=== PATIENT | male | born 1955 | race Caucasian/White ===

== ENCOUNTER 2021-03-05 07:43 | Outpatient (CLI) | payer MEDICARE, OTHER, SELFPAY ==
[2021-03-05 08:28] LABS: Basophils Percent Auto 0.8 % (0.2-1.2); Eosinophils Absolute Auto 0.3 K/mm3 (0-0.3); Eosinophils Percent Auto 8.1 % (0-4.4); Hematocrit 41.3 % (42.0-52.0); Hemoglobin 14.3 g/dL (14.0-18.0); Immature Granulocyte Absolute 0.03 K/mm3 (0.00-0.031); Immature Granulocyte Percent A 0.8 % (0-0.5); Lymphocytes Absolute Auto 0.41 K/mm3 (0.9-3.2); Lymphocytes Percent Auto 11.5 % (18.3-44.2); Mean Corpuscular HGB Conc 34.6 g/dl (32-36); Mean Corpuscular Hemoglobin 29.5 pg (26-34); Mean Corpuscular Volume 85.3 fl (80-100); Mean Platelet Volume 8.5 fl (7.4-10.4); Monocytes Absolute Auto 0.3 K/mm3 (0.1-0.6); Monocytes Percent Auto 9.5 % (2.6-8.5); Neutrophils Absolute Auto 2.5 K/mm3 (1.3-6.7); Neutrophils Percent Auto 69.3 % (45.5-73.1); Platelet Count Result 227 k/mm3 (150-375); Red Blood Count 4.84 M/mm3 (4.6-6.20); Red Cell Distribution Width 13.3 % (11.5-14.5); White Blood Count 3.6 K/mm3 (4.5-10.0)
[2021-03-05 08:43] LABS: Alanine Aminotransferase 25 U/L (4-50); Albumin Level 4.2 g/dL (3.5-5.1); Alkaline Phosphatase 60 U/L (38-126); Anion Gap 3 mmol/L (8-16); Aspartate Amino Transferase 28 U/L (17-59); Bilirubin,Total 0.4 mg/dL (0.2-1.3); Blood Urea Nitrogen 21 mg/dL (9-20); Calcium 9.3 mg/dL (8.4-10.2); Carbon Dioxide 34 mmol/L (22-30); Chloride 102 mmol/L (98-107); Cholesterol 179 mg/dL (0-200); Estimated Glomerular Filt Rate > 60; Glucose 107 mg/dL (75-110); HDL Direct 51 mg/dL; Potassium 3.9 mmol/L (3.4-5.0); Sodium 139 mmol/L (137-145); Triglycerides 205 mg/dL (<150)
[2021-03-05 08:54] LABS: LDL Cholesterol Direct 95 mg/dL
[2021-03-05 13:42] LABS: Free T4 Free Thyroxine Reflex 0.71 ng/dL (0.78-2.19)
== END 2021-03-05 07:44 | disposition home or self-care (01) ==
PROVIDERS: PCP Family Medicine; Visit Provider Family Medicine
DX: Z51.81 Encounter for therapeutic drug level monitoring (principal); Z13.220 Encounter for screening for lipoid disorders; I10 Essential (primary) hypertension; Z79.899 Other long term (current) drug therapy; Z00.00 Encounter for general adult medical examination without abnormal findings
CPT/HCPCS: 36415; 80053; 80061; 84439; 84443; 85025

== ENCOUNTER 2021-06-14 00:46 | Day surgery (SDC) | payer MEDICARE, OTHER, SELFPAY ==
[2021-06-04 14:56] VITALS: BMI 37.8
[2021-06-14 08:49] VITALS: BP 133/89; PULSE 87; RESP 22; TEMP 35.8; O2SAT 93; BMI 36.8
--- NOTE | 2021-06-14 08:54 | WPDGICN ---
Assessment and Plan Assessment and plan (1) History of colon polyps: Code(s): Z86.010 - Personal history of colonic polyps Status: Acute Assessment and Plan: Patient has a history of colon polyps in 2014. Patient presents today for surveillance examination. Continued high-fiber diet is advised. Further recommendations may be given after endoscopy. (2) Prostate cancer: Code(s): C61 - Malignant neoplasm of prostate Status: Acute Assessment and Plan: Patient is status post radiation therapy for history of recurrent prostate cancer. This may cause a proctitis which will be assessed at time of endoscopy. GI Consult Note Consult date/time: 06/14/21 08:54 HPI: Marques Springer is a 65 year old male Presents for screening colonoscopy. Patient reports that his weight appetite bowel movements are normal. His last colonoscopy was 2014. At that time he had colon polyps. Patient reports that he was found to have prostate cancer underwent prostatectomy in July of 2019. Patient had a recurrence identified last year. He in December 2020 and required a series of radiation therapy. Patient briefly had diarrhea that has now improved. He denies any blood in his stools. His family history is noncontributory. He presents today for colonoscopy. Review of Systems Review of Systems: All systems reviewed & are unremarkable except as noted in HPI and below PMFSH Past Medical History Medical History BMI 36.0-36.9,adult BPH NOS w/o ur obs/LUTS Cancer Chronic neck and back pain Degenerative arthritis of knee, bilateral Environmental allergies Erectile dysfunction Essential (primary) hypertension GERD without esophagitis History of colon polyps Hypertension Insomnia LOPEZ (obstructive sleep apnea) Osteoarthritis Prostate cancer Surgical History Surgical History History of arthroscopy of both knees 11/2012 - bilateral meniscus repair History of carpal tunnel release 2008 - Left History of prostatectomy 07/2019 Hx of decompressive lumbar laminectomy (~03/2013) S/P cervical spinal fusion (~04/2016) Family History Family History Mother Diabetes mellitus Hypertension Father Heart disease Father Family history of tuberculosis, Onset Age: 74 Cerebrovascular accident, Onset Age: 74 Patient's father is Mother Hypertension Cerebrovascular accident, Onset Age: 61 Family history of diabetes mellitus in first degree relative Diabetes mellitus, Onset Age: 61 Sibling Patient's sister is in good health Mother Diabetes mellitus Hypertension Father Family history of alcoholism Social History Social History Smoking status: Never smoker Second hand tobacco smoke exposure: No Alcohol intake: current Alcohol use details: occasionally Substance use: never Substance use type: does not use Living arrangements: with family Gender identity (if verbalized by the patient): Male Spiritual care concerns: No Meds Home Medications and Allergies Home Medications Medication Instructions Recorded Confirmed Type cetirizine 10 mg tablet 10 mg PO DAILY 11/10/19 06/04/21 History imoymlds-mef-bwnes acid 300 1 tablet PO DAILY 11/10/19 06/04/21 History mcg-lycopene 600 mcg-lutein 300 mcg tablet naproxen sodium 220 mg capsule 440 mg PO DAILY 11/10/19 06/04/21 History psyllium husk 0.52 gram capsule 0.52 gm PO DAILY 11/10/19 06/04/21 History acetaminophen 650 mg 650 mg PO Q12H 11/20/20 06/04/21 History tablet,extended release losartan 50 mg-hydrochlorothiazide 1 tablet PO DAILY #90 tablet 05/28/21 06/14/21 Rx 12.5 mg tablet omeprazole 20 mg capsule,delayed 20 mg PO DAILY #90 cap 05/28/21 06/04/21 Rx releas
--- NOTE | 2021-06-14 08:56 | WPDANESEPPF ---
Anes - Initial Pre Proc Eval Procedure: Operation Date: 06/14/21 10:00 Proposed Procedures p Screening Colonoscopy - Shen Heller MD Date/Time: 06/14/21 08:56 Surgeon: Shen Heller MD Pre Op Diagnosis: hx colon polyps Patient Data Age: 65 Gender: M Height: 1.63 m Weight: 97.5 kg Last Vital Signs Temp 35.8 C L 06/14/21 08:49 Pulse 87 06/14/21 08:49 Resp 22 H 06/14/21 08:49 BP 133/89 06/14/21 08:49 Pulse Ox 93 06/14/21 08:49 Allergies Allergy/AdvReac Type Severity Reaction Status Date / Time No Known Allergies Allergy Verified 06/14/21 08:46 Home Medications Medication Instructions Recorded Confirmed Type cetirizine 10 mg tablet 10 mg PO DAILY 11/10/19 06/04/21 History jdtwhdre-utq-mawch acid 300 1 tablet PO DAILY 11/10/19 06/04/21 History mcg-lycopene 600 mcg-lutein 300 mcg tablet naproxen sodium 220 mg capsule 440 mg PO DAILY 11/10/19 06/04/21 History psyllium husk 0.52 gram capsule 0.52 gm PO DAILY 11/10/19 06/04/21 History acetaminophen 650 mg 650 mg PO Q12H 11/20/20 06/04/21 History tablet,extended release losartan 50 mg-hydrochlorothiazide 1 tablet PO DAILY #90 tablet 05/28/21 06/14/21 Rx 12.5 mg tablet omeprazole 20 mg capsule,delayed 20 mg PO DAILY #90 cap 05/28/21 06/04/21 Rx release cyclobenzaprine 5 mg PO DAILY 06/04/21 06/04/21 History docusate sodium [Colace] 50 mg PO DAILY 06/04/21 06/04/21 History tadalafil [Cialis] 20 mg PO DAILY PRN 06/04/21 06/04/21 History zolpidem 10 mg tablet 10 mg PO DAILY PRN #30 tablet 06/05/21 Rx Patient hx anesthesia problems: other (slow to awaken) Family hx anesthesia problems: other (slow to awaken) PMFSH Past Medical History Medical History BMI 36.0-36.9,adult BPH NOS w/o ur obs/LUTS Cancer Chronic neck and back pain Degenerative arthritis of knee, bilateral Environmental allergies Erectile dysfunction Essential (primary) hypertension GERD without esophagitis History of colon polyps Hypertension Insomnia LOPEZ (obstructive sleep apnea) Osteoarthritis Prostate cancer Surgical History Surgical History History of arthroscopy of both knees 11/2012 - bilateral meniscus repair History of carpal tunnel release 2008 - Left History of prostatectomy 07/2019 Hx of decompressive lumbar laminectomy (~03/2013) S/P cervical spinal fusion (~04/2016) Family History Family History Mother Diabetes mellitus Hypertension Father Heart disease Father Family history of tuberculosis, Onset Age: 74 Cerebrovascular accident, Onset Age: 74 Patient's father is Mother Hypertension Cerebrovascular accident, Onset Age: 61 Family history of diabetes mellitus in first degree relative Diabetes mellitus, Onset Age: 61 Sibling Patient's sister is in good health Mother Diabetes mellitus Hypertension Father Family history of alcoholism Social History Social History Smoking status: Never smoker Second hand tobacco smoke exposure: No Alcohol intake: current Alcohol use details: occasionally Substance use: never Substance use type: does not use Living arrangements: with family Gender identity (if verbalized by the patient): Male Spiritual care concerns: No Anes - Eval Final PreProcedure Day of Procedure 06/14/21 08:56 Patient weight: obese Heart: regular rate and rhythm Lungs: clear to auscultation Airway: Mallampati scale class III Neurological: alert and oriented Last oral intake: >/= 8 hours ASA classification: III Emergent: no Anesthetic plan: proceed Anesthesia type and monitoring: general GIVS and standard monitoring Informed Consent: The patient's anesthetic plan and its attendant risks and benefits were discuss
[2021-06-14] MEDS: LACTATED RINGERS 1,000 ML 150 ML IV CONT (09:03)
[2021-06-14 10:18] VITALS: BP 86/48; RESP 20; O2SAT 96
[2021-06-14 10:28] VITALS: BP 135/94; RESP 18; O2SAT 97
[2021-06-14 10:38] VITALS: BP 143/92; RESP 13; O2SAT 100
== END 2021-06-14 10:50 | disposition home or self-care (01) ==
PROVIDERS: PCP Family Medicine; Visit Provider Internal Medicine Gastroenterology
PROC: 0DJD8ZZ Inspection of Lower Intestinal Tract, Via Natural or Artificial Opening Endoscopic (ICD-10-PCS; CPT 45378; principal; 2021-06-14 10:00)
DX: Z12.11 Encounter for screening for malignant neoplasm of colon (principal); Z86.010 Personal history of colon polyps; C61 Malignant neoplasm of prostate; I10 Essential (primary) hypertension; K64.8 Other hemorrhoids; K21.9 Gastro-esophageal reflux disease without esophagitis; M17.0 Bilateral primary osteoarthritis of knee; M54.2 Cervicalgia; M54.9 Dorsalgia, unspecified; G89.29 Other chronic pain; G47.00 Insomnia, unspecified; G47.33 Obstructive sleep apnea (adult) (pediatric); Z98.1 Arthrodesis status
CPT/HCPCS: G0105; J2704; J7120

== ENCOUNTER 2021-09-11 09:27 | Outpatient (CLI) | payer MEDICARE, OTHER, SELFPAY ==
[2021-09-11 10:19] LABS: Basophils Percent Auto 0.8 % (0.2-1.2); Eosinophils Absolute Auto 0.2 K/mm3 (0-0.3); Eosinophils Percent Auto 4.3 % (0-4.4); Hematocrit 41.3 % (42.0-52.0); Hemoglobin 13.6 g/dL (14.0-18.0); Immature Granulocyte Absolute 0.01 K/mm3 (0.00-0.031); Immature Granulocyte Percent A 0.3 % (0-0.5); Lymphocytes Absolute Auto 0.57 K/mm3 (0.9-3.2); Lymphocytes Percent Auto 14.5 % (18.3-44.2); Mean Corpuscular HGB Conc 32.9 g/dl (32-36); Mean Corpuscular Hemoglobin 29.2 pg (26-34); Mean Corpuscular Volume 88.6 fl (80-100); Mean Platelet Volume 8.8 fl (7.4-10.4); Monocytes Absolute Auto 0.3 K/mm3 (0.1-0.6); Monocytes Percent Auto 7.7 % (2.6-8.5); Neutrophils Absolute Auto 2.8 K/mm3 (1.3-6.7); Neutrophils Percent Auto 72.4 % (45.5-73.1); Platelet Count Result 235 k/mm3 (150-375); Red Blood Count 4.66 M/mm3 (4.6-6.20); Red Cell Distribution Width 13.2 % (11.5-14.5); White Blood Count 3.9 K/mm3 (4.5-10.0)
[2021-09-11 10:40] LABS: Alanine Aminotransferase 31 U/L (4-50); Albumin Level 4.6 g/dL (3.5-5.1); Alkaline Phosphatase 68 U/L (38-126); Anion Gap 5 mmol/L (8-16); Aspartate Amino Transferase 35 U/L (17-59); Bilirubin,Total 0.4 mg/dL (0.2-1.3); Blood Urea Nitrogen 21 mg/dL (9-20); Calcium 9.7 mg/dL (8.4-10.2); Carbon Dioxide 32 mmol/L (22-30); Chloride 102 mmol/L (98-107); Estimated Glomerular Filt Rate > 60; Glucose 103 mg/dL (65-110); Potassium 3.8 mmol/L (3.4-5.0); Sodium 139 mmol/L (137-145)
== END 2021-09-11 09:28 | disposition home or self-care (01) ==
LOC: ANHLAB 09:32
PROVIDERS: PCP Family Medicine; Visit Provider Family Medicine
DX: G47.00 Insomnia, unspecified (principal); I10 Essential (primary) hypertension; R79.89 Other specified abnormal findings of blood chemistry; D72.819 Decreased white blood cell count, unspecified
CPT/HCPCS: 36415; 80053; 84443; 85025

== ENCOUNTER → 2022-01-24 02:24 | Outpatient (CLI) | payer MEDICARE, OTHER, SELFPAY ==
[2022-01-24 17:14] LABS: SARS-CoV-2 RNA PCR Negative
== END ==
PROVIDERS: PCP Family Medicine; Visit Provider Family Medicine
DX: R68.89 Other general symptoms and signs (principal); Z20.822 Contact with and (suspected) exposure to COVID-19; Z71.84 Encounter for health counseling related to travel
CPT/HCPCS: C9803; U0003; U0005

== ENCOUNTER 2022-04-03 08:37 | Outpatient (CLI) | payer MEDICARE, SELFPAY ==
[2022-04-03 09:08] LABS: Basophils Absolute Auto 0.1 K/mm3 (0.0-0.1); Basophils Percent Auto 0.9 % (0.2-1.2); Eosinophils Absolute Auto 0.3 K/mm3 (0-0.3); Eosinophils Percent Auto 5.1 % (0-4.4); Hematocrit 43.8 % (42.0-52.0); Hemoglobin 14.4 g/dL (14.0-18.0); Immature Granulocyte Absolute 0.03 K/mm3 (0.00-0.031); Immature Granulocyte Percent A 0.6 % (0-0.5); Lymphocytes Absolute Auto 0.84 K/mm3 (0.9-3.2); Lymphocytes Percent Auto 15.8 % (18.3-44.2); Mean Corpuscular HGB Conc 32.9 g/dl (32-36); Mean Corpuscular Hemoglobin 28.9 pg (26-34); Mean Corpuscular Volume 87.8 fl (80-100); Mean Platelet Volume 8.4 fl (7.4-10.4); Monocytes Absolute Auto 0.4 K/mm3 (0.1-0.6); Monocytes Percent Auto 6.6 % (2.6-8.5); Neutrophils Absolute Auto 3.8 K/mm3 (1.3-6.7); Platelet Count Result 252 k/mm3 (150-375); Red Blood Count 4.99 M/mm3 (4.6-6.20); Red Cell Distribution Width 13.8 % (11.5-14.5); White Blood Count 5.3 K/mm3 (4.5-10.0)
[2022-04-03 09:18] LABS: Alanine Aminotransferase 23 U/L (4-50); Albumin Level 4.1 g/dL (3.5-5.1); Alkaline Phosphatase 74 U/L (38-126); Anion Gap 5 mmol/L (8-16); Aspartate Amino Transferase 30 U/L (17-59); Bilirubin,Total 0.5 mg/dL (0.2-1.3); Blood Urea Nitrogen 19 mg/dL (9-20); Calcium 9.1 mg/dL (8.4-10.2); Carbon Dioxide 33 mmol/L (22-30); Chloride 101 mmol/L (98-107); Estimated Glomerular Filt Rate > 60; Glucose 103 mg/dL (65-110); Potassium 3.7 mmol/L (3.4-5.0); Sodium 139 mmol/L (137-145)
[2022-04-03 09:25] LABS: Hemoglobin A1C 5.4 % (<5.7)
[2022-04-03 09:38] LABS: Vitamin D 25 Hydroxy 38.1 ng/mL
[2022-04-03 11:07] LABS: Free T4 Free Thyroxine Reflex 0.84 ng/dL (0.78-2.19)
[2022-04-03 21:34] LABS: Total Triiodothyronine (T3) 1.55 NG/ML (0.97-1.69)
== END 2022-04-03 08:38 | disposition home or self-care (01) ==
PROVIDERS: PCP Family Medicine; Visit Provider Family Medicine
DX: R73.9 Hyperglycemia, unspecified (principal); I10 Essential (primary) hypertension; D72.819 Decreased white blood cell count, unspecified; E55.9 Vitamin D deficiency, unspecified
CPT/HCPCS: 36415; 80053; 82306; 83036; 84439; 84443; 84480; 85025

== ENCOUNTER 2022-09-25 08:25 | Outpatient (CLI) | payer MEDICARE, SELFPAY ==
[2022-09-25 08:52] LABS: Basophils Percent Auto 0.8 % (0.2-1.2); Eosinophils Absolute Auto 0.2 K/mm3 (0-0.3); Hematocrit 42.6 % (42.0-52.0); Hemoglobin 14.5 g/dL (14.0-18.0); Immature Granulocyte Absolute 0.01 K/mm3 (0.00-0.031); Immature Granulocyte Percent A 0.2 % (0-0.5); Lymphocytes Absolute Auto 0.87 K/mm3 (0.9-3.2); Lymphocytes Percent Auto 17.2 % (18.3-44.2); Mean Corpuscular Hemoglobin 28.7 pg (26-34); Mean Corpuscular Volume 84.2 fl (80-100); Mean Platelet Volume 8.4 fl (7.4-10.4); Monocytes Absolute Auto 0.3 K/mm3 (0.1-0.6); Monocytes Percent Auto 6.1 % (2.6-8.5); Neutrophils Absolute Auto 3.6 K/mm3 (1.3-6.7); Neutrophils Percent Auto 71.7 % (45.5-73.1); Platelet Count Result 276 k/mm3 (150-375); Red Blood Count 5.06 M/mm3 (4.6-6.20); Red Cell Distribution Width 13.5 % (11.5-14.5); White Blood Count 5.1 K/mm3 (4.5-10.0)
[2022-09-25 09:04] LABS: Alanine Aminotransferase 25 U/L (6-50); Albumin Level 4.2 g/dL (3.5-5.1); Alkaline Phosphatase 64 U/L (38-126); Anion Gap 12 mmol/L (8-16); Aspartate Amino Transferase 28 U/L (17-59); Bilirubin,Total 0.4 mg/dL (0.2-1.3); Blood Urea Nitrogen 18 mg/dL (9-20); Calcium 8.7 mg/dL (8.4-10.2); Carbon Dioxide 28 mmol/L (22-30); Chloride 102 mmol/L (98-107); Cholesterol 169 mg/dL (0-200); Estimated Glomerular Filt Rate > 60; Glucose 101 mg/dL (65-110); HDL Direct 42 mg/dL; Potassium 3.5 mmol/L (3.4-5.0); Sodium 142 mmol/L (137-145); Triglycerides 168 mg/dL (<150)
[2022-09-25 09:14] LABS: LDL Cholesterol Direct 96 mg/dL
== END 2022-09-25 08:26 | disposition home or self-care (01) ==
LOC: ANHLAB 08:27
PROVIDERS: PCP Family Medicine; Visit Provider Nurse Practitioner
DX: I10 Essential (primary) hypertension (principal)
CPT/HCPCS: 36415; 80053; 80061; 85025

== ENCOUNTER 2022-09-30 13:00 | Outpatient (NON) | payer MEDICARE, SELFPAY | END 2022-09-30 13:01 | disposition home or self-care (01) | PROVIDERS: PCP Family Medicine; Visit Provider Nurse Practitioner | DX: L82.1 Other seborrheic keratosis (principal) | CPT/HCPCS: 88305; 88342 ==

== ENCOUNTER → 2023-01-08 15:43 | Outpatient (CLI) | payer MEDICARE, SELFPAY ==
--- NOTE | ~2023-01-08 | XR_ITS ---
EXAMINATION: XR hip RT min 3V w AP pelvis DATE: 01/08/2023 15:59 INDICATION: 2 weeks of right hip pain TECHNIQUE: Anteroposterior view of the pelvis and anteroposterior and frog-leg lateral views of the r ight hip were obtained. COMPARISON: None. FINDINGS: Alignment is normal. No fracture or suspected avascular necrosis. Mild bilateral hip and sacroiliac o steoarthritis. Mild to moderate lumbar spondylosis. No significant interval change attending for diff erences in technique in a large sclerotic lesion in the left innominate bone which is been present si nce CT without increased uptake on bone scan on studies dated 06/29/2019. IMPRESSION: 1. Mild bilateral hip and sacroiliac osteoarthritis. 2. Chronic large sclerotic lesion at the left innominate bone which could represent a large bone teo nd, bone infarct, enchondroma or treated prostate cancer. 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 Mild bilateral hip and sacroiliac osteoarthritis. 2. Chronic large sclerotic lesion at the left innominate bone which could repre sent a large bone island, bone infarct, enchondroma or treated prostate cancer.
== END ==
PROVIDERS: PCP Family Medicine; Visit Provider Family Medicine
DX: M25.551 Pain in right hip (principal); M16.0 Bilateral primary osteoarthritis of hip; M89.9 Disorder of bone, unspecified
CPT/HCPCS: 73502

== ENCOUNTER → 2023-02-13 11:37 | Outpatient (CLI) | payer MEDICARE, SELFPAY ==
--- NOTE | ~2023-02-13 | XR_ITS ---
Lumbosacral Spine: AP and lateral views Clinical History: Pain Findings: The normal lordotic curve is maintained. No fracture or subluxation identified. There is ad vanced degenerative disc narrowing at L2-L3. There is mild to moderate degenerative disc change at re maining lumbar levels. There is advanced facet arthropathy from L3 through S1. The sacroiliac joints are normally outlined. Impression: Moderate degenerative spondylosis, as detailed above. Reviewed, dictated and finalized at location . Impression: Moderate degenerative spondylosis, as detailed above.
== END ==
PROVIDERS: PCP Family Medicine; Visit Provider Family Medicine
DX: M47.26 Other spondylosis with radiculopathy, lumbar region (principal)
CPT/HCPCS: 72100

== ENCOUNTER → 2023-03-19 10:39 | Outpatient (CLI) | payer MEDICARE, SELFPAY ==
--- NOTE | ~2023-03-19 | MR_ITS ---
MRI of the lumbar spine Clinical History: Back pain Technique: Axial T2-weighted images, and sagittal T1-weighted, T2-weighted, and T2 fat-sat images wer e acquired. Findings: There is no fracture or subluxation of the lumbar spine. Vertebral bodies maintain normal h eight and alignment. No suspicious bone marrow signal abnormality seen. There are areas of reactive m arrow signal changes due to underlying degenerative disc disease. At L1-L2, there is mild degenerative disc narrowing. There is moderate facet joint arthropathy and mi nimal disc bulge. No eli spinal canal stenosis. No neural foraminal narrowing. At L2-L3, there is advanced degenerative disc narrowing. There is diffuse disc bulge and moderate fac et arthropathy. There is moderate to advanced thecal sac compression/spinal canal stenosis. There is moderate bilateral neural foraminal narrowing. At L3-L4, there is diffuse disc bulge and facet arthropathy bilaterally. Probable prior laminectomy. There is severe bilateral neural foraminal narrowing, right worse than left. No spinal canal stenosis . At L4-L5, there is diffuse disc bulge with superimposed small disc extrusion extending superiorly in the right paracentral region. There is advanced facet arthropathy. There is prior laminectomy. There is probable right lateral recess stenosis. There is severe right neural foraminal narrowing and mild to moderate left neural foraminal narrowing. At L5-S1, there is mild disc bulge and advanced facet arthropathy. No spinal canal stenosis. There is moderate bilateral neural foraminal narrowing. Paravertebral soft tissues are unremarkable. Impression: Multifactorial moderate to severe thecal sac compression/spinal canal stenosis at L2-L3, with bilater al neural foraminal narrowing. Severe bilateral neural foraminal narrowing at L3-L4. Right lateral recess stenosis and bilateral neural foraminal narrowing at L4-L5, as detailed above, w ith small right paracentral disc extrusion. Additional mild to moderate degenerative changes, as above. Reviewed, dictated and finalized at location M. Impression: Multifactorial moderate to severe thecal sac compression/spinal canal stenosis at L2-L3, with bilateral neural foraminal narrowing. Severe bilateral neural foraminal narrowing at L3-L4. Right lateral recess stenosis and bilateral neural foraminal narrowing at L4-L5 , as detailed above, with small right paracentral disc extrusion. Additional mild to moderate degenerative changes, as above.
== END ==
PROVIDERS: PCP Family Medicine; Visit Provider Family Medicine
DX: M54.16 Radiculopathy, lumbar region (principal); M51.36 Other intervertebral disc degeneration, lumbar region
CPT/HCPCS: 72148

== ENCOUNTER 2023-03-30 07:26 | Outpatient (CLI) | payer MEDICARE, SELFPAY ==
[2023-03-30 07:50] LABS: Basophils Absolute Auto 0.1 K/mm3 (0.0-0.1); Basophils Percent Auto 0.9 % (0.2-1.2); Eosinophils Absolute Auto 0.3 K/mm3 (0-0.3); Eosinophils Percent Auto 4.2 % (0-4.4); Hematocrit 45.6 % (42.0-52.0); Hemoglobin 15.2 g/dL (14.0-18.0); Immature Granulocyte Absolute 0.04 K/mm3 (0.00-0.031); Immature Granulocyte Percent A 0.6 % (0-0.5); Lymphocytes Absolute Auto 0.96 K/mm3 (0.9-3.2); Lymphocytes Percent Auto 14.5 % (18.3-44.2); Mean Corpuscular HGB Conc 33.3 g/dl (32-36); Mean Corpuscular Volume 86.9 fl (80-100); Mean Platelet Volume 8.6 fl (7.4-10.4); Monocytes Absolute Auto 0.5 K/mm3 (0.1-0.6); Monocytes Percent Auto 7.4 % (2.6-8.5); Neutrophils Absolute Auto 4.8 K/mm3 (1.3-6.7); Neutrophils Percent Auto 72.4 % (45.5-73.1); Platelet Count Result 308 k/mm3 (150-375); Red Blood Count 5.25 M/mm3 (4.6-6.20); Red Cell Distribution Width 14.5 % (11.5-14.5); White Blood Count 6.6 K/mm3 (4.5-10.0)
[2023-03-30 08:00] LABS: Alanine Aminotransferase 27 U/L (6-50); Albumin Level 4.3 g/dL (3.5-5.1); Alkaline Phosphatase 65 U/L (38-126); Anion Gap 5 mmol/L (8-16); Aspartate Amino Transferase 26 U/L (17-59); Bilirubin,Total 0.6 mg/dL (0.2-1.3); Blood Urea Nitrogen 19 mg/dL (9-20); Calcium 8.8 mg/dL (8.4-10.2); Carbon Dioxide 33 mmol/L (22-30); Chloride 101 mmol/L (98-107); Cholesterol 172 mg/dL (0-200); Estimated Glomerular Filt Rate > 60; Glucose 106 mg/dL (65-110); HDL Direct 35 mg/dL; Potassium 3.9 mmol/L (3.4-5.0); Sodium 139 mmol/L (137-145); Triglycerides 201 mg/dL (<150)
[2023-03-30 08:13] LABS: LDL Cholesterol Direct 93 mg/dL
[2023-03-30 08:31] LABS: Vitamin D 25 Hydroxy 35.9 ng/mL
[2023-03-30 09:31] LABS: Free T4 Free Thyroxine Reflex 0.88 ng/dL (0.78-2.19)
[2023-03-30 10:14] LABS: Total Triiodothyronine (T3) 1.49 NG/ML (0.97-1.69)
== END 2023-03-30 07:27 | disposition home or self-care (01) ==
PROVIDERS: PCP Family Medicine; Visit Provider Family Medicine
DX: E78.5 Hyperlipidemia, unspecified (principal); E53.8 Deficiency of other specified B group vitamins; I10 Essential (primary) hypertension; E55.9 Vitamin D deficiency, unspecified; G47.00 Insomnia, unspecified
CPT/HCPCS: 36415; 80053; 80061; 82306; 82607; 84439; 84443; 84480; 85025

== ENCOUNTER 2024-03-23 09:15 | Outpatient (CLI) | payer MEDICARE, SELFPAY ==
[2024-03-23 20:11] LABS: Hemoglobin A1C 5.4 % (<5.7)
[2024-03-23 20:17] LABS: Basophils Percent Auto 1.1 % (0.2-1.2); Eosinophils Absolute Auto 0.2 K/mm3 (0-0.3); Eosinophils Percent Auto 4.3 % (0-4.4); Hematocrit 47.1 % (42.0-52.0); Hemoglobin 15.2 g/dL (14.0-18.0); Immature Granulocyte Absolute 0.01 K/mm3 (0.00-0.031); Immature Granulocyte Percent A 0.3 % (0-0.5); Lymphocytes Absolute Auto 0.71 K/mm3 (0.9-3.2); Lymphocytes Percent Auto 19.2 % (18.3-44.2); Mean Corpuscular HGB Conc 32.3 g/dl (32-36); Mean Corpuscular Hemoglobin 28.6 pg (26-34); Mean Corpuscular Volume 88.7 fl (80-100); Monocytes Absolute Auto 0.3 K/mm3 (0.1-0.6); Monocytes Percent Auto 7.3 % (2.6-8.5); Neutrophils Absolute Auto 2.5 K/mm3 (1.3-6.7); Neutrophils Percent Auto 67.8 % (45.5-73.1); Platelet Count Result 310 k/mm3 (150-375); Red Blood Count 5.31 M/mm3 (4.6-6.20); Red Cell Distribution Width 13.7 % (11.5-14.5); White Blood Count 3.7 K/mm3 (4.5-10.0)
[2024-03-23 20:30] LABS: Alanine Aminotransferase 21 U/L (6-50); Albumin Level 4.6 g/dL (3.5-5.1); Alkaline Phosphatase 66 U/L (38-126); Anion Gap 9 mmol/L (4-12); Aspartate Amino Transferase 44 U/L (17-59); Bilirubin,Total 0.9 mg/dL (0.2-1.3); Blood Urea Nitrogen 19 mg/dL (9-20); Calcium 9.5 mg/dL (8.4-10.2); Carbon Dioxide 29 mmol/L (22-30); Chloride 101 mmol/L (98-107); Cholesterol 171 mg/dL (0-200); Estimated Glomerular Filt Rate > 60; Glucose 92 mg/dL (65-110); HDL Direct 41 mg/dL; Potassium 3.7 mmol/L (3.4-5.0); Sodium 139 mmol/L (137-145); Triglycerides 112 mg/dL (<150)
[2024-03-23 20:43] LABS: LDL Cholesterol Direct 105 mg/dL; Vitamin D 25 Hydroxy 28.2 ng/mL
== END 2024-03-23 09:16 | disposition home or self-care (01) ==
PROVIDERS: PCP Family Medicine; Visit Provider Family Medicine
DX: E78.5 Hyperlipidemia, unspecified (principal); I10 Essential (primary) hypertension; E53.8 Deficiency of other specified B group vitamins; E55.9 Vitamin D deficiency, unspecified; N52.9 Male erectile dysfunction, unspecified; R73.9 Hyperglycemia, unspecified
CPT/HCPCS: 36415; 80053; 80061; 82306; 82607; 83036; 84443; 85025

== ENCOUNTER 2024-10-05 08:53 | Outpatient (CLI) | payer MEDICARE, SELFPAY ==
[2024-10-05 21:02] LABS: Vitamin D 25 Hydroxy 32.6 ng/mL
[2024-10-05 21:25] LABS: Alanine Aminotransferase 23 U/L (6-50); Albumin Level 4.2 g/dL (3.5-5.1); Alkaline Phosphatase 63 U/L (38-126); Anion Gap 7 mmol/L (4-12); Aspartate Amino Transferase 30 U/L (17-59); Bilirubin,Total 0.4 mg/dL (0.2-1.3); Blood Urea Nitrogen 22 mg/dL (9-20); Calcium 9.3 mg/dL (8.4-10.2); Carbon Dioxide 32 mmol/L (22-30); Chloride 99 mmol/L (98-107); Estimated Glomerular Filt Rate > 60; Glucose 81 mg/dL (65-110); Potassium 3.8 mmol/L (3.4-5.0); Sodium 138 mmol/L (137-145)
== END 2024-10-05 08:54 | disposition home or self-care (01) ==
LOC: ANHGOSHLAB 08:54
PROVIDERS: PCP Family Medicine; Visit Provider Family Medicine
DX: E55.9 Vitamin D deficiency, unspecified (principal); I10 Essential (primary) hypertension
CPT/HCPCS: 36415; 80053; 82306

== ENCOUNTER 2025-01-20 08:52 | Outpatient (CLI) | payer MEDICARE, SELFPAY ==
--- OUTSIDE RECORDS SUMMARY | 2025-01-20 09:25 | XMS_ITS | Referral Summary ---
Author Organization [facility] Address [address] [place] [address] Care Team Providers Care Instrument Mechanic Name Role Phone Alejandra Quintanilla MD Primary Care Provider Allergies No known active allergies Medications HYDROcodone-aristides taminophen (NORCO) 5-325 mg per tabletIndicatio ns:Pain 0 8 Active cyclobenzaprine (FLEXERIL) 5 mg tablet TK 1 T PO TID PRN 3 8 Active losartan-hydroC HLOROthiazide (HYZAAR) 50-12.5 mg per tablet Active omeprazole (PriLOSEC) 20 mg capsule Active tamsulosin (FLOMAX) 0.4 mg extended release capsule Acti ve zolpidem (AMBIEN) 10 mg tabletIndicatio ns:Sleep-Onset Insomnia TK 1 T PO QHS 5 8 Active cetirizine (ZyrTEC) 10 mg tablet Active aspirin 81 mg tablet Take 1 tablet (81 mg total) by mouth daily Active gabapentin (NEURONTIN) 300 mg capsule Take 2 capsules (600 mg total) by mouth 3 (three) times a day 3 Active multivitamin tablet Active tadalafiL (CIALIS) 20 mg tablet Take 1 tablet (20 mg total) by mouth daily 3 Active naproxen (NAPROSYN) 250 mg tablet Take by mouth 2 (two) times a day with meals Active acetaminophen ER (TYLENOL) 650 mg 8 hr tablet Take 1 tablet (650 mg total) by mouth every 8 (eight) hours as needed for pain Active mupirocin (BACTROBAN) 2 % ointment Apply topically 3 (three) times a day 22 g 3 Active ergocalciferol (VITAMIN D) 50,000 unit capsule Take 1 capsule (50,000 Units total) by mouth once a week 4 Active Active Problems Problem Noted Date Diagnosed Date Lumbar radiculopathy 01/07/2017 04/07/2023 Cervical disc disorder with radiculopathy 201604/07/2023 Postlaminectomy syndrome of cervical region 12/0104/07/2023 Postlaminectomy syndrome of lumbar region 201604/07/2023 Low bone density 08/05/2016 04/07/2023 Hoarseness 02/25/2016 04/07/2023 Cerebral infarction 01/30/2016 04/07/2023 History of deep venous thrombosis 01/30/2016 04/07/2023 Peripheral nerve disease 01/30/2016 023 Osteopenia 01/08/2016 04/07/2023 Abnormal gait 01/07/2016 04/07/2023 History of excision of jorge a of lumbar vertebra for decompression of spinal cord 01/07/2016 04/07/2023 Osteoarthritis of cervical spine with myelopathy 01/07/2016 04/07/2023 Spinal stenosis of cervical region 01/07/2016 04/07/2023 Degeneration of intervertebral disc of cervical region 01/07/2016 04/07/2023 Osteoarthritis of lumbosacral spine without myel opathy 01/07/2016 04/07/2023 Lumbar stenosis with neurogenic claudication 06/201604/07/2023 Assessment & Plan (09/03/2023 6:27 PM CDT): Mr. Springer is status post L3-4 and L4-5 laminectomy for decompression by Dr. Chao. He has developed adjacent level facet hypertrophy and stenosis at L2-3 with lateral recess stenosis bilaterally. His leg symptoms have markedly improved with injections. He would be a candidate for L2-3 laminectomy and fusion when his leg symptoms return and are no longer relieved by conservative treatment. He had questions about facet injections and rhizotomy. I think that this is very reasonable given the arthropathy that he has at the L2-3 level bilaterally. I would offer him L2-3 laminectomy and fusion whenever his symptoms warrant. I plan to see him back in October for re-evaluation. We discussed that I would not be performing surgery after the beginning of September for a period of time. Assessment & Plan (04/14/2023 3:13 PM CDT): Mr. Springer has lumbar stenosis with neurogenic claudication. He is status post prior laminectomy at L3-4 and L4-[address] Chao. He has severe central canal and bilateral lateral recess stenosis at L2-3 that seems to be causing his symptoms. He has disc bulges and severe foraminal stenosis at other levels that seem to be asymptomatic. He has a current appointment set up with Dr. Pal for injections. He will keep this. I plan to see him back for re-evaluation in 4 months no new films at that time. If he has any worsening of his symptoms in the interim, he is currently a candidate for surgery in the form of L2-3 laminectomy and fusion with instrumentation. Social History Tobacco Use Types Packs/Day Years Used Date Smoking Tobacco: Never Smokeless Tobacco: Never Tobacco Cessation:Counseling Given: Not Answered Alcohol Use Standard Drinks/Week Comments No 0 (1 standard drink = 0.6 oz pur e alcohol) AUDIT-C Answer Date Recorded Q1: How often do you have a drink containing alc ohol? 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 Gender Identity Not on file Sexual Orientation Not on file Last Filed Vital Signs Vital Sign Reading Time Taken Comments Blood Pressure 122/83 09/11/2024 8:04 AM CDT Pulse 84 09/11/2024 8:04 AM CDT Temperature 36.6 C (97.9 F) 09/11/2024 8:04 AM CDT Respiratory Rate 14 08/11/2023 1:21 PM CDT Oxygen Saturation 96% 09/11/2024 8:04 AM CDT Inhaled Oxygen Concentration - - Weight 101.3 kg (223 lb 6.4 oz) 09/11/2024 8:04 AM CDT Height 160 cm (5' 3 ) 09/11/2024 8:04 AM CDT Body Mass Index 39.57 09/11/2024 8:04 AM CDT Plan of Treatment Not on file Insurance MEDICARE COMMERCIAL GENERIC MEDICARE [employer] Care Teams Instrument Mechanic Relationship Specialty Start Date End Date Alejandra Quintanilla MD [address] [facility] [address] [place] [address] PCP - General 02/24/17
--- OUTSIDE RECORDS SUMMARY | 2025-01-20 09:25 | XMS_ITS | Clinical Summary ---
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 Pulse 75 12/13/2012 5:35 PM BELL HOLE DIGGER Temperature - - Respiratory Rate - - Oxygen Saturation - - Inhaled Oxygen Concentration - - Weight 83.9 kg (185 lb) 12/13/2012 5:35 PM BELL HOLE DIGGER Height 162.6 cm (5' 4 ) 12/13/2012 5:35 PM BELL HOLE DIGGER Body Mass Index 31.76 12/13/2012 5:35 PM BELL HOLE DIGGER Plan of Treatment Health Maintenance Due Date Last Done Comments Colorectal Cancer Screening Colonoscopy (10 Years) 1957 Hepatitis C 1975 DTaP, Tdap and Td Vaccines ( 1 - Tdap) 1976 Zoster Vaccines (1 of 2) 2007 Pneumococcal Vaccine: 65+ Ye ars (1 of 1 - PCV) 2022 COVID-19 Vaccine ( - 2023-2 5 season) 2024 Influenza Adult (#1) 2024 RSV Immunization or 60+ Years (1 - 1-dose 75+ series) 2032 Meningococcal B Vaccine Aged Out No l onger eligible based on patient's age to complete this topic Meningococcal Vaccine Aged Out No loli rene eligible based on patient's age to complete this topic RSV Immunizations Under 20 Months Aged Out No longer eligible based on patient's age to complete this topic Care Teams Manager Construction Relationship Specialty Start Date End Date Alejandra Quintanilla MD [address] [facility] [address] [facility] [address] [place] [address] PCP - General 05/04/14
--- OUTSIDE RECORDS SUMMARY | 2025-01-20 09:25 | XMS_ITS | Clinical Summary ---
Author Organization [facility] Address [address] [facility] [place] [address] Care Team Providers Care Dress Cutter Name Role Phone Alejandra Quintanilla MD Primary [...] of L2-3 laminectomy and fusion with instrumentation. Surgical History Surgery Date Site/Laterality Comments KNEE ARTHROSCOPY Knee Arthroscopy - (Added by TW Conv) BACK SURGERY Back Surgery - (Added by TW Conv) MA NEUROPLASTY &/TRANSPOS MEDIAN NRV CARPAL TUNNE 11/30/2008 - 11/29/2009 Neuroplasty Decompression Median Nerve At Carpal Tunnel - (Added by TW Conv) POSTERIOR LAMINECTOMY / DECOMPRESSION LUMBAR SPINE 04/30/2013 - 05/29/2013 CERVICAL FUSION 03/30/2016 - 04/29/2016 C4-C7 PROSTATECTOMY 11/30/2018 - 11/29/2019 Medical History Medical History Date Comments Personal history of thrombophlebitis Thromboembolic Disease - (Added by TW Conv) Personal history of other di seases of the circulatory system History of hypertension - (A dded by TW Conv) Personal history of other di seases of the digestive system History of esophageal reflux - (Added by TW Conv) Hypertension GERD (gastroesophageal reflux disease) Sleep apnea Prostate cancer (HCC) Arthritis Family History Medical History Relation Name Comments Curvature of spine Father Curvature of spine - (Added by TW Conv) Diabetes Other 1 Diabetes Mellit us - (Added by TW Conv) Heart disease Other 2 Heart Disease - (Added by TW Conv) Stroke Other 3 Stroke Syndrome - (Added by TW Conv) Cancer Other 4 Cancer - (Added by TW Conv) Hypertension Other 5 Family history of hypertension - (Added by TW Conv) Relation Name Status Comments Father Other 1 Other 2 Other 3 Other 4 Other 5 Social History Tobacco Use Types Packs/Day Years [...] on file 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 Gender Identity Not on file Sexual Orientation Not on file Obstetrics History Last Filed Vital Signs Vital Sign Reading [...] 09/11/2024 8:04 AM CDT Plan of Treatment Health Maintenance Due Date Last Done Comments Colon Cancer Screening-Colonoscopy 1955 Hepatitis C Screening 1955 Prostate Cancer Screening-PSA 1955 Hepatitis B Screening 1975 Pneumococcal vaccine 65+ (1 of 1 - PCV) 2007 Zoster Vaccine (1 of 2) 2007 Fall Risk Assessment 06/24/2019 06/24/2018 Abdominal Aortic Aneurysm (A AA) Screen 2022 Well Visit 65+ 2022 Depression Screening 04/14/2024 04/14/2023 Covid-19 Vaccine (2023-2 5 season) 2024 11/13/2022, 06/19/2022, 09/14/2021, Additional history exists Influenza Vaccine (#1) 2024 , 09/14/2021, 09/28/2020, Additional history exists DTaP/Tdap/Td Vaccine (3 - Td or Tdap) 08/31/2027 08/31/2017, 08/22/2017, 11/30/2016 Insurance MEDICARE COMMERCIAL GENERIC MEDICARE SOLUTIONS MEDICARE SOLUTIONS Care Teams Dress Cutter Relationship Specialty Start Date End Date Alejandra Quintanilla MD [address] [place] [address] PCP - General 02/24/17
--- OUTSIDE RECORDS SUMMARY | 2025-01-20 09:25 | XMS_ITS | Encounter Summary ---
Author Organization [facility] Address [address] [facility] [place] [address] Care Team Providers Care Manager Quantitative Name Role Phone Alejandra Quintanilla MD Primary Care Provider + Encounter Details Date Type Department Care Team (Late st Contact Info) Description 06/09/2019 Lab Requisition [facility] Care Pathology Lab [address] [place] [address] Mandy Graves MD [address] [place] [address] Elevated prostate specific antigen (PSA) Social History Tobacco Use Types Packs/Day Years Used Date Smoking Tobacco: Never Assessed Sex and Gender Information Value Date Recorded Sex Assigned at Not on file Gender Identity Not on file Sexual Orientation Not on file documented as of this encounter Plan of Treatment Not on file documented as of this encounter Visit Diagnoses Diagnosis Elevated prostate specific antigen (PSA) documented in this encounter Care Teams Manager Quantitative Relationship Specialty Start Date End Date Alejandra Quintanilla MD [address] [place] [address] PCP - General Family Medicine 08/22/17 documented as of this encounter
--- OUTSIDE RECORDS SUMMARY | 2025-01-20 09:25 | XMS_ITS | Referral Summary ---
Author Organization [facility] Address [address] [place] [address] Care Team Providers Care Concrete Mixing Truck Driver Name Role Phone Alejandra Quintanilla MD Primary Care Provider + Source Comments [facility],non-owned Affiliates and Associated Physician Practices is amultiple site organization consisting of ambulatory clinics and hospital sitesin [place], [place], [place] and [place]. This disclosure is being madepursuant to the Care Everywhere program and may not contain all information available regarding this patient. Last updated 18.[facility] [employer] Allergies No known active allergies Immunizations Name Administration Dates Next Due INFLUENZA VACCINE, QUADR. (F LUZONE; FLULAVAL; FLUARIX; AFLURIA QUADRIVALENT; 6MO+), 0.5 ML (IIV4) 08/22/2017 TDAP (7yrs+) 08/22/2017 Social History Tobacco Use Types Packs/Day Years Used Date Smoking Tobacco: Never Assessed Sex and Gender Information Value Date Recorded Sex Assigned at Not on file Gender Identity Not on file Sexual Orientation Not on file Plan of Treatment Not on file Care Teams Concrete Mixing Truck Driver Relationship Specialty Start Date End Date Alejandra Quintanilla MD [address] [place], [place] [id number] PCP - General Family Medicine 08/22/17
--- OUTSIDE RECORDS SUMMARY | 2025-01-20 09:25 | XMS_ITS | Clinical Summary ---
Author Organization [facility] Address [address] [facility] [place] [address] Care Team Providers Care Nurse Aide Name Role Phone Alejandra Quintanilla MD Primary Care Provider + Source Comments [facility] [employer],non-owned Affiliates and Associated Physician Practices is amultiple site organization consisting of ambulatory clinics and hospital sitesin [place], [place], [place] and [place]. This disclosure is being madepursuant to the Care Everywhere program and may not contain all information available regarding this patient. Last updated 18.[facility] [employer] Allergies No known active allergies Immunizations Name [...] Orientation Not on file Plan of Treatment Health Maintenance Due Date Last Done Comments COLOGUARD (AGES 45-75) - COL ON CA SCREENING 1957 COLON MONITORING 1957 COLONOSCOPY - COLON CA SCREENING 1957 CT COLONOGRAPHY - COLON CA SCREENING 1955 Colorectal Cancer Screening 1957 FIT - COLON CA SCREENING 1957 FLEX SIG - COLON CA SCREENING 1957 LIPID TESTING 1955 MEDICARE AWV 12 MONTHS 1957 HEPATITIS C SCREENING 11/17/1975 PNEUMOCOCCAL VACCINE 50+ (1 of 1 - PCV) 2007 ZOSTER VACCINE (1 of 2) 2007 COVID-19 VACCINE ( - 2023-2 5 season) 2024 INFLUENZA VACCINE (#1) 2024 08/22/2017 DEPRESSION SCREENING 11/30/2024 MEDICARE AWV CALENDAR YEAR 2024 DTAP/TDAP/TD VACCINES (2 - T d or Tdap) 08/22/2027 08/22/2017 Respiratory Syncytial Virus (RSV) Vaccine Pt: or over 60 yrs (1 - 1-dose 75+ series) 2032 HEPATITIS B VACCINE Aged Out No longe r eligible based on patient's age to complete this topic HIB VACCINE Aged Out No longer eligi ble based on patient's age to complete this topic HPV VACCINE Aged Out No longer eligi ble based on patient's age to complete this topic MENINGOCOCCAL (Group B) VACCINE Aged Out No longer eligible based on patient's age to complete this topic MENINGOCOCCAL VACCINE Aged Out No loli rene eligible based on patient's age to complete this topic Care Teams Nurse Aide Relationship Specialty Start Date End Date Alejandra Quintanilla MD [address] [place] [address] PCP - General Family Medicine 08/22/17
--- OUTSIDE RECORDS SUMMARY | 2025-01-20 09:25 | XMS_ITS | Patient Health Summary ---
Author Organization [facility] Address [address] [facility] [address] Care Team Providers Care Cafeteria Worker Name Role Phone Alejandra Quintanilla MD Primary Care Provider + Note from [facility],non-owned Affiliates and Associated Physician Practices is amultiple site organization consisting of ambulatory clinics and hospital sitesin [place], [place], [place] and [place]. This disclosure is being madepursuant to the Care Everywhere program and may not contain all information available regarding this patient. Last updated 18.[facility] Allergies No known active allergies Immunizations * INFLUENZA VACCINE, QUADR. (FLUZONE; FLULAVAL; FLUARIX; AFLURIA QUADRIVALENT; 6MO+), 0.5 ML (IIV4)(Given 08/22/2017) * TDAP (7yrs+)(Given 08/22/2017) Social History Tobacco Use Types Packs/Day Years Used Date Smoking Tobacco: Never Assessed Sex and Gender Information Value Date Recorded Sex Assigned at Not on file Gender Identity Not on file Sexual Orientation Not on file Care Teams Cafeteria Worker Relationship Specialty Start Date End Date Alejandra Quintanilla MD [address] [place] [address] PCP - General Family Medicine 08/22/17
--- NOTE | 2025-01-20 09:49 | ECG_ITS ---
Test Date: 2025-01-20 09:57:56 Measurements Intervals [place] Rate: 81 P: 22 VT: 155 QRS: 17 QRSD: 83 T: 66 QT: 350 QTc: 407 Interpretive Statements SINUS RHYTHM MINIMAL Q WAVES- INFERIOR LEADS ANTEROSEPTAL INFARCT, AGE INDETERMINATE BORDERLINE ST-T WAVE ABNORMALITY- HIGH LATERAL LEADS ABNORMAL ECG No previous ECG available for comparison Electronically Signed On 01-20-2025 10:05:11 [employer] by Bar Yang D.O.
[2025-01-20 10:10] LABS: Basophils Percent Auto 0.9 % (0.2-1.2); Eosinophils Absolute Auto 0.2 K/mm3 (0-0.3); Eosinophils Percent Auto 3.4 % (0-4.4); Hematocrit 47.1 % (42.0-52.0); Hemoglobin 15.4 g/dL (14.0-18.0); Immature Granulocyte Absolute 0.02 K/mm3 (0.00-0.031); Immature Granulocyte Percent A 0.5 % (0-0.5); Lymphocytes Absolute Auto 0.77 K/mm3 (0.9-3.2); Lymphocytes Percent Auto 17.5 % (18.3-44.2); Mean Corpuscular HGB Conc 32.7 g/dl (32-36); Mean Corpuscular Hemoglobin 28.6 pg (26-34); Mean Corpuscular Volume 87.4 fl (80-100); Mean Platelet Volume 8.5 fl (7.4-10.4); Monocytes Absolute Auto 0.3 K/mm3 (0.1-0.6); Monocytes Percent Auto 5.7 % (2.6-8.5); Neutrophils Absolute Auto 3.2 K/mm3 (1.3-6.7); Platelet Count Result 312 k/mm3 (150-375); Red Blood Count 5.39 M/mm3 (4.6-6.20); Red Cell Distribution Width 13.6 % (11.5-14.5); White Blood Count 4.4 K/mm3 (4.5-10.0)
[2025-01-20 10:20] LABS: Albumin Level 4.4 g/dL (3.5-5.1); Anion Gap 10 mmol/L (4-12); Blood Urea Nitrogen 18 mg/dL (9-20); Calcium 9.5 mg/dL (8.4-10.2); Carbon Dioxide 31 mmol/L (22-30); Chloride 98 mmol/L (98-107); Estimated Glomerular Filt Rate > 60; Glucose 88 mg/dL (65-110); Hemoglobin A1C 5.8 % (<5.7); Potassium 3.5 mmol/L (3.4-5.0); Sodium 139 mmol/L (137-145)
[2025-01-20 10:22] LABS: Urine Cotinine NEGATIVE
== END 2025-01-20 08:53 | disposition home or self-care (01) ==
LOC: ANHSURGERY 08:58
PROVIDERS: PCP Family Medicine; Visit Provider Orthopaedic Surgery
DX: Z01.818 Encounter for other preprocedural examination (principal); M17.0 Bilateral primary osteoarthritis of knee
CPT/HCPCS: 80048; 80307; 82040; 83036; 85025; 87081; 93005

== ENCOUNTER 2025-02-02 09:30 | Outpatient (CLI) | payer MEDICARE, SELFPAY ==
--- NOTE | ~2025-02-02 | NM_ITS ---
EXAMINATION: NM cyndi stress w perfusion DATE: 02/02/2025 12:10 INDICATION: Abnormal electrocardiogram. TECHNIQUE: Rest images were obtained following intravenous administration of 10.7 mCi Tc99m tetrofosm in (Myoview). The patient was infused intravenously with Lexiscan (regadenoson). Then, 31.6 mCi Tc99m tetrofosmin (Myoview) was administered intravenously, and stress images were obtained. Data was kavitha nstructed into short axis and horizontal and vertical long axis SPECT images. Gated SPECT images were also obtained. COMPARISON: None. FINDINGS: There is no definite reversible or fixed perfusion abnormality to suggest ischemia or infar ction. There is no segmental wall motion abnormality. Left ventricular ejection fraction measures 6 8%. IMPRESSION: 1. No definite ischemia or infarct. 2. Normal left ventricular ejection fraction measuring 68%. Reviewed, dictated and finalized at location A. [facility]
--- NOTE | 2025-02-02 09:42 | EST_ITS ---
Patient Info Name: Marques Springer Age: 69 years : 1955 Gender: Male Ht: 63 in Wt: 212 lbs BSA: 2.11 m2 HR: 71 bpm BP: 113 / 77 mmHg Exam Date: 02/02/2025 11:17 AM Exam Location: Echo Lab Patient Status: Outpatient Admit Date: 02/02/2025 Staff Ordering Physician: David Rasheed MD Attending Provider: David Rasheed MD Exercise Technologist: Ashley Rievra [facility] Exercise Physician: Bar Yang DO Exam Type: CA stress cyndi w NM Study Info A regadenoson stress test was performed. Summary 1. 1. Negative lexiscan stress test for ischemic ST changes by ECG criteria. 2. 2. Stable hemodynamics throughout the test. 3. 3. Nuclear scan to follow and will be reported separately. Please correlate with it. 4. 4. Patient informed of the above results. Protocol: Lexiscan Stress ECG Details Stage: REST Duration (min): 1 min : 13 sec HR (bpm): 75 SBP (mmHg): 113 DBP (mmHg): 77 Stage: REST Duration (min): 13 min : 57 sec HR (bpm): 76 SBP (mmHg): 113 DBP (mmHg): 77 Stage: STAGE 1 Duration (min): 0 min : 59 sec HR (bpm): 93 SBP (mmHg): 118 DBP (mmHg): 75 Stage: RECOVERY Duration (min): 1 min : 0 sec HR (bpm): 97 SBP (mmHg): 118 DBP (mmHg): 75 Stage: RECOVERY Duration (min): 2 min : 0 sec HR (bpm): 88 SBP (mmHg): 118 DBP (mmHg): 75 Stage: RECOVERY Duration (min): 3 min : 0 sec HR (bpm): 85 SBP (mmHg): 111 DBP (mmHg): 74 Stage: RECOVERY Duration (min): 3 min : 13 sec HR (bpm): 85 SBP (mmHg): 111 DBP (mmHg): 74 Rest HR: 76 bpm Peak HR: 100 bpm Rest Sys BP: 113 mmHg Peak Sys BP: 118 mmHg Max Pred HR: 153 bpm % Max Pred HR: 65 % Target HR: 130 bpm Max RPP: 11,800 bpm*mmHg Termination Reason: Completed protocol Cardiac Symptoms: Chest pain Total Time: 1 min : 0 sec Rest Santos BP: 77 mmHg Peak Santos BP: 75 mmHg Total Dose: 0.4 mg Resting ECG Sinus rhythm, cannot r/o septal infarct, age indeterminate. Stress ECG No ST changes. Arrhythmias None. Report Signatures
--- OUTSIDE RECORDS SUMMARY | 2025-02-02 10:30 | XMS_ITS | Clinical Summary ---
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 SCIENCE TEACHER Pulse 75 12/13/2012 5:35 PM HIGH SCHOOL COMPUTER SCIENCE TEACHER Temperature - - Respiratory Rate - - Oxygen Saturation - - Inhaled Oxygen Concentration - - Weight 83.9 kg (185 lb) 12/13/2012 5:35 PM HIGH SCHOOL COMPUTER SCIENCE TEACHER Height 162.6 cm (5' 4 ) 12/13/2012 5:35 PM HIGH SCHOOL COMPUTER SCIENCE TEACHER Body Mass Index 31.76 12/13/2012 5:35 PM HIGH SCHOOL COMPUTER SCIENCE TEACHER Plan of Treatment Health Maintenance Due Date [...] age to complete this topic Care Teams Rim Fire Priming Operator Relationship Specialty Start Date End Date Alejandra Quintanilla MD [address] [facility] [address] [facility] [address] [place] [address] PCP - General 05/04/14
--- OUTSIDE RECORDS SUMMARY | 2025-02-02 10:30 | XMS_ITS | Patient Health Summary ---
Author Organization [facility] Address [address] [facility] [place] [address] Care Team Providers Care Mechanic Foreman Name Role Phone Alejandra Quintanilla MD Primary Care Provider + Note from [facility][note 3],non-owned Affiliates and Associated Physician Practices is amultiple site organization consisting of ambulatory clinics and hospital sitesin [place], [place], [place] and [place]. This disclosure is being madepursuant to the Care Everywhere program and may not contain all information available regarding this patient. Last updated 18.[facility] Allergies No known active allergies Immunizations * INFLUENZA VACCINE, QUADR. (FLUZONE; FLULAVAL; FLUARIX; AFLURIA QUADRIVALENT; 6MO+), 0.5 ML (IIV4)(Given 08/22/2017) * TDAP (7yrs+)(Given 08/22/2017) Social History Tobacco Use Types Packs/Day Years Used Date Smoking Tobacco: Never Assessed Sex and Gender Information Value Date Recorded Sex Assigned at Not on file Gender Identity Not on file Sexual Orientation Not on file Care Teams Mechanic Foreman Relationship Specialty Start Date End Date Alejandra Quintanilla MD [address] [place] [address] PCP - General Family Medicine 08/22/17
--- OUTSIDE RECORDS SUMMARY | 2025-02-02 10:30 | XMS_ITS | Clinical Summary ---
Author Organization [facility] Address [address] [facility] [place] [address] Care Team Providers Care Line Department Supervisor Name Role Phone Alejandra Quintanilla MD Primary Care Provider + Source Comments [facility],non-owned Affiliates and Associated Physician Practices is amultiple site organization consisting of ambulatory clinics and hospital sitesin [place], [place], [place] and [place]. This disclosure is being madepursuant to the Care Everywhere program and may not contain all information available regarding this patient. Last updated 18.[facility] Allergies No known active allergies Immunizations Name [...] age to complete this topic Care Teams Line Department Supervisor Relationship Specialty Start Date End Date Alejandra Quintanilla MD [address] [place] [address] PCP - General Family Medicine 08/22/17
--- OUTSIDE RECORDS SUMMARY | 2025-02-02 10:30 | XMS_ITS | Referral Summary ---
Author Organization [facility] Address [address] [place] [address] Care Team Providers Care Prospect Manager Name Role Phone Alejandra Quintanilla MD Primary Care Provider + Source Comments [facility],non-owned Affiliates and Associated Physician Practices is amultiple site organization consisting of ambulatory clinics and hospital sitesin [place], [place], [place] and [place]. This disclosure is being madepursuant to the Care Everywhere program and may not contain all information available regarding this patient. Last updated 18.[facility] [employer] Allergies No known active allergies Immunizations Name [...] of Treatment Not on file Care Teams Prospect Manager Relationship Specialty Start Date End Date Alejandra Quintanilla MD [address] [place], [place] [id number] PCP - General Family Medicine 08/22/17
--- OUTSIDE RECORDS SUMMARY | 2025-02-02 10:30 | XMS_ITS | Clinical Summary ---
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
--- OUTSIDE RECORDS SUMMARY | 2025-02-02 10:30 | XMS_ITS | Encounter Summary ---
Author Organization [facility] Address [address] [facility] [place] [address] Care Team Providers Care Correctional Cook Name Role Phone Alejandra Quintanilla MD Primary Care Provider + Encounter Details Date Type Department Care Team (Late st Contact Info) Description 06/09/2019 Lab Requisition [facility] Care Pathology Lab [address] [place] [address] Mandy Graves MD [address] [place] [address] Elevated prostate specific antigen (PSA) Social History [...] (PSA) documented in this encounter Care Teams Correctional Cook Relationship Specialty Start Date End Date Alejandra Quintanilla MD [address] [place] [address] PCP - General Family Medicine 08/22/17 documented as of this encounter
--- OUTSIDE RECORDS SUMMARY | 2025-02-02 10:30 | XMS_ITS | Referral Summary ---
Author Organization [facility] Address [address] [facility] [place] [address] Care Team Providers Care Rough Carpenter Name Role Phone Alejandra Quintanilla MD Primary [...] & Plan (04/14/2023 3:13 PM CDT): Mr. Springre has lumbar stenosis with neurogenic claudication. 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
== END 2025-02-02 09:31 | disposition home or self-care (01) ==
PROVIDERS: PCP Family Medicine; Visit Provider Family Medicine
DX: Z01.818 Encounter for other preprocedural examination (principal); R94.31 Abnormal electrocardiogram [ECG] [EKG]; I10 Essential (primary) hypertension; Z91.89 Other specified personal risk factors, not elsewhere classified
CPT/HCPCS: 78452; 93017; A9502; J2785

== ENCOUNTER 2025-02-09 00:11 | Day surgery (SDC) | payer MEDICARE, SELFPAY ==
--- NOTE | 2025-01-20 08:50 | PC.NURSE ---
Report to the Outpatient Waiting Room, entrance under the green pavilion located off [facility], at time __6 AM on date _02/09/25 . Planned Procedure Time: __7:30 AM .? Time changes happen often and if your time is changed the preop area will call you the afternoon before. - You and your visitor will be asked to self-screen and do not enter if you have any COVID symptoms. Please call surgeon if you need to reschedule. - A mask is optional within the hospital at this time. Patients may have clear liquids (water, carbonated beverages, clear teas, apple juice) until 3 hours prior to surgery ( 4:30 AM) with a maximum of 20 ounces. - No food from midnight until time of surgery and no smoking, or chewing tobacco (or any form of nicotine). No chewing gum, candy or mints. Take only the following medications with a SIP of water on the morning of surgery: NONE DO NOT STOP ANY OF YOUR OTHER PRESCRIPTION MEDICATIONS PRIOR TO SURGERY EXCEPT THE FOLLOWING Hold all vitamins and supplements for 3 days per anesthesiologist.LAST DOSE 02/05/25 Medications to discontinue per physician ____NAPROXEN HOLD 7 DAYS PRE OP PER DR BAZZI Date to take last dose__02/01/25 MAY TAKE TYLENOL IF NEEDED FOR PAIN Please no make-up, nail mohawk, hairspray, perfume, deodorant, or body powder the day of surgery.? No jewelry (including any body piercings) or valuables the day of surgery, leave them at home.? Please take a shower or bath the night before, or the morning of, surgery with an antibacterial soap.? Wear comfortable, loose fitting clothing.? Children are encouraged to wear pajamas. - Jewelry must be removed prior to entering the operating room.? Rings and piercings that are not removed may be cut off. - The hospital will not accept responsibility for valuables.? - Please leave all valuables, including medications, at home the day of surgery. If you are going home after surgery, a licensed test driver must drive you home.? - NO public transportation without another adult if you receive anesthesia. - We recommend that an adult stay with you for 24 hours following discharge. - We also recommend that you do not drive, make important decision, drink alcoholic beverages, or take any drugs that were not prescribed by your health care provider for at least 24 hours after your discharge time. Follow any additional instructions given to you from your surgeon. VERBAL AND WRITTEN instructions given to _PATIENT and asked if any additional questions and then verbalized understanding. Patient advised to call surgeon office or pre surgery nurse liaison [phone] if any additional questions.
[2025-01-20 09:02] VITALS: BMI 37.3
[2025-01-20 09:48] VITALS: BP 128/77; PULSE 85; RESP 18; TEMP 36.9; O2SAT 97
--- NOTE | 2025-02-08 12:15 | PM.IMHP ---
H&P: HPI History of Present Illness Date/Time: 02/08/25 12:15 Chief Complaint: Bilateral knee DJD Narrative: 69-year-old male who presents today for left total knee arthroplasty with cortisone injection the right knee. Patient has been having symptoms in both knees for several years. He has been treating these with cortisone injections every 3 months. Last injections were 4 half months ago. He also takes Aleve twice daily as well as Tylenol. At this point nonsurgical treatment is not giving him satisfactory improvement of his symptoms. He is having pain on a daily basis. It is starting to limit his daily lifestyle. Patient feels this point is ready proceed with total knee arthroplasty. He does have [id number] medial compartment osteoarthritis in both knees. Review of Systems Review of Systems: All systems reviewed & are unremarkable except as noted in HPI and below PMFSH Past Medical History Medical History Prediabetes History of prostate cancer Obesity Leucopenia History of colon polyps Osteoarthritis LOPEZ (obstructive sleep apnea) Insomnia History of colon polyps Environmental allergies Erectile dysfunction BPH NOS w/o ur obs/LUTS resolved status post total prostatectomy secondary to prostate cancer in July 2019. Prostate cancer Chronic neck and back pain Essential (primary) hypertension GERD without esophagitis Degenerative arthritis of knee, bilateral Cancer Surgical History Surgical History H/O radiofrequency ablation (RFA) of nerve of lumbar spine (~09/22/23) History of carpal tunnel surgery of left wrist (~2008) History of arthroscopy of both knees (~11/2012) 11/2012 - bilateral meniscus repair History of prostatectomy (~07/2019) 07/2019 Hx of decompressive lumbar laminectomy (~03/2013) S/P cervical spinal fusion (~04/2016) Family History Family History Mother Diabetes mellitus Hypertension Cerebrovascular accident Father Family history of tuberculosis, Onset Age: 74 Cerebrovascular accident, Onset Age: 74 Patient's father is Heart disease Family history of alcoholism Sibling Patient's sister is in good health Social History Social History Smoking status: Never smoker Second hand tobacco smoke exposure: No Additional smoking assessment comments: DENIES ANY FORM OF TOBACCO USE Alcohol intake: current Alcohol use details: occasionally Substance use: never Substance use type: does not use Current Housing: Decline to Answer Concerned About Future Housing: Decline to Answer Difficulty Paying Gas/Electric Bills: Decline to Answer Difficulty Paying for Meds: Decline to Answer Currently Unemployed: Decline to Answer Education: Decline to Answer Difficulty w/ Childcare or Family Care: Decline to Answer Living arrangements: with family Occupation/Education: retired 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 Gender identity (if verbalized by the patient): Male Spiritual care concerns: No Meds Home Medications and Allergies Home Medications ?Medication ?Instructions ?Recorded ?Confirmed ?Type cetirizine 10 mg tablet 10 mg PO PRN ALLERGIES 11/10/19 01/20/25 History [id number]-hn-[id number] 300 mcg-K 60 1 tablet PO DAILY 11/10/19 01/20/25 History mcg-lycop 600 mcg-lutein 300 mcg tablet (Centrum Silver Men) naproxen sodium 220 mg capsule 440 mg PO DAILY 11/10/19 01/20/25 History acetaminophen 650 mg 650 mg PO Q12H 11/20/20 01/20/25 History tablet,extended release (Tylenol Arthritis Pain) tadalafil 20 mg tablet (Cialis) 20 mg PO DAILY PRN Sexual Activity 06/04/21 01/20/25 History cyclobenzaprine 5 mg tablet 5 mg PO BID PRN muscle spasm #180 04/11/24 01/20/25 Rx tabs cholecalciferol (vitamin D3) 50 50 mcg PO DAILY #90 tabs 10/05/24 01/20/25 Rx mcg (2,000 unit) tablet omeprazole 20 mg capsule,delayed 20 mg PO DAILY #90 caps 10/05/24 01/20/25 Rx release losartan 50 mg-hydrochlorothiazide 1 tablet PO DAILY #90 tabs 01/09/25 01/20/25 Rx 12.5 mg tablet zolpidem 10 mg tablet 10 mg PO QHS PRN insomnia #30 tabs 02/06/25 Rx Allergies Allergy/AdvReac Type Severity Reaction Status Date / Time No Known Allergies Allergy Verified 02/03/25 08:26 Exam Narrative: 69-year-old male alert pleasant. He is 5 ft 4 and 212 lb BMI is 36.3. Left knee range of motion is from 12-130 degrees. Normal stability in the knee. Trace effusion. Skin is all normal to the lower extremities. Hip range of motion is full without discomfort, negative Stinchfield maneuver. Normal quad strength. 2+ dorsalis pedis pulses foot. No numbness or tingling in either lower extremity. Resp: Auscultation: clear to auscultation bilaterally Cardio: Rate: regular rate Rhythm: regular rhythm Assessment and Plan Assessment and plan (1) Primary osteoarthritis of knees, bilateral: Code(s): M17.0 - Bilateral primary osteoarthritis of knee Status: Acute Plan 69-year-old male who has [id number]-[id number] medial compartment osteoarthritis in both knees. At this point he nonsurgical treatment is not giving him satisfactory improvement. He feels he is ready proceed with total knee arthroplasty at this point. Surgical procedures well as risks and complications were discussed in detail all questions were answered and we will proceed. Patient will see his primary care doctor for pre-surgical clearance. He avoid any aspirin ibuprofen products 1 week prior to surgery. His nasal swab was negative. Hemoglobin 15.4 platelets were 312. Chem panel is all within normal limits creatinine 0.77
[2025-02-09] VITALS (19 sets, daily range): BP systolic 108–176; BP diastolic 78–101; PULSE 81–106; RESP 12–20; TEMP 36.2–37.1; O2SAT 93–100
--- NOTE | ~2025-02-09 | XR_ITS ---
EXAMINATION: [id number] DATE: 02/09/2025 11:06 INDICATION: Left knee arthroplasty. Postop. TECHNIQUE: 2 views of left knee were obtained. COMPARISON: Left knee radiographs 01/18/2025 FINDINGS: There is a total left knee arthroplasty without patellar resurfacing in near-anatomic align ment. There are osteophytes of the patella, likely with interval resection. There is gas in the knee joint and soft tissues, consistent with recent surgery. IMPRESSION: 1. Total left knee arthroplasty in near-anatomic alignment. Reviewed, dictated and finalized at location B.
--- OUTSIDE RECORDS SUMMARY | 2025-02-09 00:15 | XMS_ITS | Encounter Summary ---
Author Organization [facility] Address [address] [place] [address] Care Team Providers Care Enrobing Machine Corder Name Role Phone Alejandra Quintanilla MD Primary Care Provider + Encounter Details Date Type Department Care Team (Late st Contact Info) Description 06/09/2019 Lab Requisition [facility] Care Pathology Lab [address] [place] [address] Mandy Graves MD [address] [place] [address] Elevated prostate specific antigen (PSA) Social History [...] (PSA) documented in this encounter Care Teams Enrobing Machine Corder Relationship Specialty Start Date End Date Alejandra Quintanilla MD [address] [place] [address] PCP - General Family Medicine 08/22/17 documented as of this encounter
--- OUTSIDE RECORDS SUMMARY | 2025-02-09 00:15 | XMS_ITS | Referral Summary ---
Author Organization [facility] Address [address] [place] [address] Care Team Providers Care Training And Development Head Name Role Phone Alejandra Quintanilla MD Primary Care Provider + Source Comments [facility],non-owned Affiliates and Associated Physician Practices is amultiple site organization consisting of ambulatory clinics and hospital sitesin [place], [place] and [place]. This disclosure is being madepursuant to the Care Everywhere program and may not contain all information available regarding this patient. Last updated 18.[facility] Allergies No known active allergies Immunizations Name [...] of Treatment Not on file Care Teams Training And Development Head Relationship Specialty Start Date End Date Alejandra Quintanilla MD [address] [place], [place] [id number] PCP - General Family Medicine 08/22/17
--- OUTSIDE RECORDS SUMMARY | 2025-02-09 00:15 | XMS_ITS | Patient Health Summary ---
Author Organization [facility] Address [address] [facility] [place] [address] Care Team Providers Care Ticker Installer Name Role Phone Alejandra Quintanilla MD Primary Care Provider + Note from [facility],non-owned Affiliates and Associated Physician Practices is amultiple site organization consisting of ambulatory clinics and hospital sitesin [place], [place], [place] and [place]. This disclosure is being madepursuant to the Care Everywhere program and may not contain all information available regarding this patient. Last updated 18.[facility] Allergies No known active allergies [...] Sexual Orientation Not on file Care Teams Ticker Installer Relationship Specialty Start Date End Date Alejandra Quintanilla MD [address] [place] [address] PCP - General Family Medicine 08/22/17
--- OUTSIDE RECORDS SUMMARY | 2025-02-09 00:15 | XMS_ITS | Clinical Summary ---
Author Organization [facility] Address [address] [place] [id number] Care Team Providers Care Circulator Name Role Phone Alejandra Quintanilla MD Primary Care Provider +1- [phone] Social History Tobacco Use Types Packs/Day Years Used Date Smoking Tobacco: Never Assessed Sex and Gender Information Value Date Recorded Sex Assigned at Not on file Legal Sex Male 4:55 PM CDT Gender Identity Not on file Sexual Orientation Not on file Last Filed Vital Signs Vital Sign Reading Time Taken Comments Blood Pressure 130/90 12/13/2012 5:35 PM CORROSION CONTROL ENGINEER Pulse 75 12/13/2012 5:35 PM CORROSION CONTROL ENGINEER Temperature - - Respiratory Rate - - Oxygen Saturation - - Inhaled Oxygen Concentration - - Weight 83.9 kg (185 lb) 12/13/2012 5:35 PM CORROSION CONTROL ENGINEER Height 162.6 cm (5' 4 ) 12/13/2012 5:35 PM CORROSION CONTROL ENGINEER Body Mass Index 31.76 12/13/2012 5:35 PM CORROSION CONTROL ENGINEER Plan of Treatment Health Maintenance Due Date [...] age to complete this topic Care Teams Circulator Relationship Specialty Start Date End Date Alejandra Quintanilla MD [address] [address] [facility] [address] [place] [address] PCP - General 05/04/14
--- OUTSIDE RECORDS SUMMARY | 2025-02-09 00:15 | XMS_ITS | Clinical Summary ---
Author Organization [facility] Address [address] [place] [address] Care Team Providers Care Moveman Name Role Phone Alejandra Quintanilla MD Primary Care Provider + Source Comments [facility],non-owned Affiliates and Associated Physician Practices is amultiple site organization consisting of ambulatory clinics and hospital sitesin [place], [place], [place] and [place]. This disclosure is being madepursuant to the Care Everywhere program and may not contain all information available regarding this patient. Last updated 18.[facility] Allergies No known active allergies Immunizations Name [...] to complete this topic MENINGOCOCCAL (Group B) VACC INE SHARED DECISION-MAKING Aged Out No longer eligibl e based on patient's age to complete this topic MENINGOCOCCAL GROUPS A/C/Y/W VACCINE Aged Out No longer eligible b ased on patient's age to complete this topic Care Teams Moveman Relationship Specialty Start Date End Date Alejandra Quintanilla MD [address] [place] [address] PCP - General Family Medicine 08/22/17
[2025-02-09] MEDS: VANCOMYCIN 1,500 MG/NS 500 ML BAG 250 MG IVPB (06:40)
[2025-02-09] MEDS: ACETAMINOPHEN 500 MG TABLET 1000 MG PO (06:57)
[2025-02-09] MEDS: TRANEXAMIC ACID 1,000MG/ISO100 1,000 MG/100 ML BAG 200 MG IVPB (06:58)
--- NOTE | 2025-02-09 07:04 | P.PNAN_ITS ---
Anes - Initial Pre Proc Eval Procedure: Operation Date: 02/09/25 07:30 Proposed Procedures p Left Total Knee Arthroplasty, Cortisone Injection Right Knee - Isael Alvares MD Date/Time: 02/09/25 07:04 Surgeon: Isael Alvares MD Pre Op Diagnosis: OA bilat knees Patient Data Age: 69 Gender: M Height: 1.61 m Weight: 97.1 kg Last Vital Signs Temp 97.4 F L 02/09/25 06:53 Pulse 81 02/09/25 06:53 Resp 18 01/20/25 09:48 BP 141/81 H 02/09/25 06:53 Pulse Ox 95 02/09/25 06:53 O2 Del Method Room Air 02/09/25 06:53 Allergies Allergy/AdvReac Type Severity Reaction Status Date / Time No Known Allergies Allergy Verified 02/03/25 08:26 Home Medications ?Medication ?Instructions ?Recorded ?Confirmed ?Type cetirizine 10 mg tablet 10 mg PO PRN ALLERGIES 11/10/19 01/20/25 History [id number]-wn-phqdn 300 mcg-K 60 1 tablet PO DAILY 11/10/19 01/20/25 History mcg-lycop 600 mcg-lutein 300 mcg tablet (Centrum Silver Men) naproxen sodium 220 mg capsule 440 mg PO DAILY 11/10/19 01/20/25 History acetaminophen 650 mg 650 mg PO Q12H 11/20/20 01/20/25 History tablet,extended release (Tylenol Arthritis Pain) tadalafil 20 mg tablet (Cialis) 20 mg PO DAILY PRN Sexual Activity 06/04/21 0 01/20/25 History cyclobenzaprine 5 mg tablet 5 mg PO BID PRN muscle spasm #180 04/11/24 01/20/25 Rx tabs cholecalciferol (vitamin D3) 50 50 mcg PO DAILY #90 tabs 10/05/24 01/20/25 Rx mcg (2,000 unit) tablet omeprazole 20 mg capsule,delayed 20 mg PO DAILY #90 caps 10/05/24 01/20/25 Rx release losartan 50 mg-hydrochlorothiazide 1 tablet PO DAILY #90 tabs 01/09/25 01/20/25 Rx 12.5 mg tablet zolpidem 10 mg tablet 10 mg PO QHS PRN insomnia #30 tabs 02/06/25 Rx Laboratory Tests 02/09/25 06:32 Blood Type Pending Antibody Screen Pending Patient hx anesthesia problems: none Family hx anesthesia problems: none Results Review: All pre-operative results and documents have been reviewed as part of the pre- operative evaluation. [facility] Past Medical History Medical History Prediabetes History of prostate cancer Obesity Leucopenia History of colon polyps Osteoarthritis LOPEZ (obstructive sleep apnea) Insomnia History of colon polyps Environmental allergies Erectile dysfunction BPH NOS w/o ur obs/LUTS resolved status post total prostatectomy secondary to prostate cancer in July 2019. Prostate cancer Chronic neck and back pain Essential (primary) hypertension GERD without esophagitis Degenerative arthritis of knee, bilateral Cancer Surgical History Surgical History H/O radiofrequency ablation (RFA) of nerve of lumbar spine (~09/22/23) History of carpal tunnel surgery of left wrist (~2008) History of arthroscopy of both knees (~11/2012) 11/2012 - bilateral meniscus repair History of prostatectomy (~07/2019) 07/2019 Hx of decompressive lumbar laminectomy (~03/2013) S/P cervical spinal fusion (~04/2016) Family History Family History Mother Diabetes mellitus Hypertension Cerebrovascular accident Father Family history of tuberculosis, Onset Age: 74 Cerebrovascular accident, Onset Age: 74 Patient's father is Heart disease Family history of alcoholism Sibling Patient's sister is in good health Social History Social History Smoking status: Never smoker Second hand tobacco smoke exposure: No Additional smoking assessment comments: DENIES ANY FORM OF TOBACCO USE Alcohol intake: current Alcohol use details: occasionally Substance use: never Substance use type: does not use Current Housing: Decline to Answer Concerned About Future Housing: Decline to Answer Difficulty Paying Gas/Electric Bills: Decline to Answer Difficulty Paying for Meds: Decline to Answer Currently Unemployed: Decline to Answer Education: Decline to Answer Difficulty w/ Childcare or Family Care: Decline to Answer Living arrangements: with family Occupation/Education: retired 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 ) Neurological: alert and oriented Last oral intake: >/= 8 hours ASA classification: III Emergent: no Anesthetic plan: proceed Anesthesia type and monitoring: general ETT and standard monitoring Results Review: All pre-operative results and documents have been reviewed as part of the pre- operative evaluation. HTN, LOPEZ on CPAP, hx of C4-7 w min mobility. Stress test 01/2025 w no ischemia, LVEF nml. Informed Consent: The patient's anesthetic plan and its attendant risks and benefits were discussed with the patient/family/POA. Questions were solicited and answers provided to the satisfaction of the patient/family/POA.
--- NOTE | 2025-02-09 07:11 | WPDHPUPDATE1 ---
History and Physical Update Update Date/Time: 02/09/25 07:11 History and Physical has been reviewed, including an updated exam of the patient. There are NO changes in the patient's condition. Risks, benefits, and alternatives have been discussed and questions answered. Patient agrees to proceed with procedure.
[2025-02-09] MEDS: LACTATED RINGERS 1,000 ML 30 ML IV CONT ×2 (07:30→11:07)
[2025-02-09] MEDS: ceFAZolin 2 GM/D5W 50 ML 2 GM/50 ML BAG IVPB ×3 (07:39→22:02)
[2025-02-09] MEDS: LIDOCAINE 1% LOCAL INJ 10 ML VIAL 4 ML INFILTRATE (07:39)
[2025-02-09] MEDS: SODIUM CHLORIDE 0.9% IV 37.7 ML, MORPHINE SULFATE INJ (*CRX) 2 MG, ROPivacaine HCL 1% 2... INFILTRATE (07:39)
[2025-02-09] MEDS: methylPREDNISolone ACETATE 80 MG/ML VIAL IM (07:39)
[2025-02-09] MEDS: ceFAZolin SODIUM 1 GM VIAL 3 GM (08:11)
--- NOTE | 2025-02-09 09:42 | SUR.OPER ---
dilaudid 1mg given to Joanie Thurman CRNA
[2025-02-09] MEDS: GENTAMICIN BONE CEMENT REFOBACIN 1 EACH TOPICAL (09:48)
[2025-02-09] MEDS: KETOROLAC 15 MG/ML VIAL (*BKC) IV PUSH ×3 (10:03→22:02)
[2025-02-09] MEDS: ceFAZolin SODIUM 1 GM VIAL 2 GM IV PUSH (10:04)
[2025-02-09] MEDS: TRANEXAMIC ACID 1,000 MG/10 ML AMPUL 1000 MG IV PUSH (10:05)
--- NOTE | 2025-02-09 11:12 | PM.OP ---
Procedure Note - Brief Procedure Note - Brief Date of procedure: 02/09/25 OA bilat knees Procedure performed: left total knee with cortisone injection right knee Surgeon: ENRIQUE Schneider Findings: 69-year-old male underwent left total knee arthroplasty on 02/09. I was involved in the procedure including positioning the patient on the OR table in 1st assisting through the time surgery. Total time spent was 3-1/2 hours
[2025-02-09] MEDS: fentaNYL CITRATE INJ (*CRX) 100 MCG/2 ML VIAL 25 MCG IV PUSH ×4 (11:35→13:00)
--- NOTE | 2025-02-09 12:59 | P.OP_ITS ---
Procedure Note - Detailed Date of Procedure 02/09/25 Pre-op Diagnosis OA bilat knees, severe obesity BMI 37.3 Post-op Diagnosis Same Procedure Performed 1. Cortisone injection right knee 2. Left total knee arthroplasty. Surgeon Isael Alvares MD Photovoltaic Panel Installer jorje Anesthesia General Description of Procedure Patient was brought to the operating room and general anesthesia was administered. The right knee was prepped with ChloraPrep and 80 mg of Depo- Medrol and 4 cc 1% lidocaine were injected through a lateral parapatellar approach without difficulty. The LEFT knee was prepped and draped in usual fashion. Under anesthesia he continued to have approximately 15 degree flexion contracture. Because of his obesity, this made the case more difficult and added approximately 30 minutes of surgical time to the procedure. Limb was exsanguinated tourniquet elevated to 300 mmHg. A 7 in longitudinal midline incision was using a stair standard parapatellar arthrotomy utilized. Suprapatellar fat pad excised quadriceps synovectomy carried out partial excision of the infrapatellar fat pad was carried out. The patella had some mild osteophytes inferiorly which were debrided and otherwise had normal articular cartilage. I thought it was most appropriate for non resurfacing. A minimal lateral facetectomy was performed. A guide rick was inserted on femoral canal after aspiration of canal contents and using the 5 degree valgus cutting bushing 9 mm of bone removed the distal femur. Next the tibial plateau was cut making a skim cut off the low portion of the medial tibial plateau where area. This removed about 8 mm from lateral side. Meniscal remnants were excised the PCL was recessed. Flexion gap was measured at 7 mm medially and 14 mm laterally. The femoral sizing guide was applied to the distal femur set at 5? of external rotation which matched Whitesides line. Posterior referencing pinholes were placed and the size 65 vanguard cutting block applied AP and chamfer cuts were made this gave a flush cut with the anterior cortex and fit line to line medial to lateral. A 10 mm CR trial insert was placed in flexion and we were much tighter medially than laterally particularly in flexion at this time. The knee lacked about 7? of flexion due to tightness medially and there was 2 mm of play laterally. The tibia was sized to a 71 and punched at proper rotation which fit well anteromedial to posterolateral but left a large medial and posterior medial osteophyte remaining. These osteophytes were carefully removed after healing the deep capsule off of the osteophyte themselves to the level of the metaphysis and not further. Posterior capsular release from the distal femur was performed. The femoral trial was applied and residual posterior condylar bone was removed with the curved osteotome. On re trialing with the 10 insert at 90? we had 1 mm medial opening 2 mm of lateral opening and appropriate anterior posterior drawer stability in all positions. The knee had a positive bounce lacking about1- 2? of extension with a mm of medial openin g. 2 mm of lateral opening in this position. With the arthrotomy approximated with towel clips however the knee lacked about 4? of extension with no medial play. Therefore we address the distal femur. With the 5 degree rick I saw that we were probably in about 5.5? of valgus alignment as the plate flow did 0.5 mm off the distal lateral femoral condyle therefore elected to remove about a mm and half of bone from the medial femoral condyle 1 mm off the lateral femoral condyle chamfer cuts revisited and on read trialing now the knee came out to full extension with negative bounce and 1-2 mm of medial opening 2-3 mm of lateral opening and negative bounce with the arthrotomy towel clipped. A step drill was used to make multiple perforations in the tibial plateau and distal femur. His bone density was excellent. The bony surfaces were thoroughly irrigated and dried. Using 2 batches of methylmethacrylate the cement was immediately applied to the 71 vanguard tibial tray and then the size 65 left CR femoral component cement applied the tibial plateau pressurized component fully seated cement applied the femur the femoral component fully seated the knee brought into extension with 11 mm 5 1 insert for pressurization the tourniquet released at 110 minutes. After cement hardening excess was sought for removed and hemostasis was achieved we trialed the 10 insert had the same findings as above. The real 10 was placed and locked the locking clip. Range of motion stability and patellar tracking were confirmed. Patellar tracking was perfect throughout range of motion. After injection of local anesthetic cocktail and careful hemostasis revisited, wound was irrigated again and closed with 2. Vicryl and 1. Unidirectional barbed Stratafix suture the arthrotomy. Skin closed with 2 subcutaneous Vicryl 3-0 subcuticular Monocryl and glue. EBL was estimated at 250 cc. Two additional g of Ancef 1 g TXA given time wound closure. There were no complications he was transferred postop recovery room in good condition. [facility] Billing Surgery - Charge Forward: Surgery Billing (1. Cortisone shot right knee 2.Left total knee arthroplasty, extra difficulty due to obesity. )
--- NOTE | 2025-02-09 13:29 | ADMGEN ---
This patient, Marques Springer, was admitted to [facility] Surg Room 327-01. Patient/family oriented to hospital policies and general routines including ID bracelet, bed and alarms, visiting hours, pain management, procedures, bathroom and other care routines, personal items, smoking policy, room service/diet, and visiting hours. Information on how to activate the Rapid Response Team has been discussed. Patient/Family are encouraged to report perceived risks to care and to ask questions if they do not understand what they are told or what they should do.
[2025-02-09] MEDS: ACETAMINOPHEN 325 MG TABLET 650 MG PO ×3 (14:25→20:34)
[2025-02-09] MEDS: oxyCODONE HCL (*CRX) 5 MG TAB IR PO ×3 (14:25→20:34)
--- NOTE | 2025-02-09 14:45 | P.CONIM_ITS ---
Assessment and Plan Assessment and plan (1) Osteoarthritis of left knee: Code(s): M17.12 - Unilateral primary osteoarthritis, left knee Status: Acute Assessment and Plan: * Patient is post op day 0 from left total knee arthroplasty * continue incentive spirometry q.2 hours while awake * PT and OT ordered * orthopedic surgery primary * Eliquis 2.5 mg p.o. b.i.d. ordered per surgery team * continue pain control * continue to ice and elevate (2) Essential (primary) hypertension: Code(s): I10 - Essential (primary) hypertension Status: Acute Assessment and Plan: * blood pressure ranging 155/90 t 176/99 * continue losartan and hydrochlorothiazide (3) GERD without esophagitis: Code(s): K21.9 - Gastro-esophageal reflux disease without esophagitis Status: Acute Assessment and Plan: * start Protonix 40 mg daily (4) LOPEZ (obstructive sleep apnea): Code(s): G47.33 - Obstructive sleep apnea (adult) (pediatric) Status: Acute Assessment and Plan: * order placed to use home CPAP HPI Date of Consult Consult date: 02/09/25 Requesting Physician: Isael Alvares MD Primary Care Provider: Meredith Rasheed MD Consult Narrative Narrative: Marques Springer is a 69 year old male with a significant past medical history of prostate cancer status post prostatectomy, obesity, LOPEZ, hypertension, GERD, prediabetes, osteoarthritis who presented to the hospital for elective left total knee arthroplasty with Dr. Alvares today. We were consulted for medical management while inpatient. Patient states pain is well controlled. He denies any new complaints today. Review of Systems Review of Systems: All systems reviewed & are unremarkable except as noted in HPI and below PMFSH Past Medical History Medical History Prediabetes History of prostate cancer Obesity Leucopenia History of colon polyps Osteoarthritis LOPEZ (obstructive sleep apnea) Insomnia History of colon polyps Environmental allergies Erectile dysfunction BPH NOS w/o ur obs/LUTS resolved status post total prostatectomy secondary to prostate cancer in July 2019. Prostate cancer Chronic neck and back pain Essential (primary) hypertension GERD without esophagitis Degenerative arthritis of knee, bilateral Cancer Surgical History Surgical History H/O radiofrequency ablation (RFA) of nerve of lumbar spine (~09/22/23) History of carpal tunnel surgery of left wrist (~2008) History of arthroscopy of both knees (~11/2012) 11/2012 - bilateral meniscus repair History of prostatectomy (~07/2019) 07/2019 Hx of decompressive lumbar laminectomy (~03/2013) S/P cervical spinal fusion (~04/2016) Family History Family History Mother Diabetes mellitus Hypertension Cerebrovascular accident Father Family history of tuberculosis, Onset Age: 74 Cerebrovascular accident, Onset Age: 74 Patient's father is Heart disease Family history of alcoholism Sibling Patient's sister is in good health Social History Social History Smoking status: Never smoker Second hand tobacco smoke exposure: No Alcohol intake: current Alcohol use details: occasionally Substance use: never Substance use type: does not use Do You Feel Safe in your Home?: Yes Lack of Transportation: No Lack of Food: Never True Current Housing: I Have Housing Concerned About Future Housing: No Difficulty Paying Gas/Electric Bills: No Difficulty Paying for Meds: No Currently Unemployed: No Education: High School Diploma/GED Difficulty w/ Childcare or Family Care: No Living arrangements: with family 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 Gender identity (if verbalized by the patient): Male Spiritual care concerns: No Meds Home Medications and Allergies Home Medications ?Medication ?Instructions ?Recorded ?Confirmed ?Type cetirizine 10 mg tablet 10 mg PO PRN ALLERGIES 11/10/19 01/20/25 History jmdmenme-ss-rnhbn 300 mcg-K 60 1 tablet PO DAILY 11/10/19 01/20/25 History mcg-lycop 600 mcg-lutein 300 mcg tablet (Centrum Silver Men) naproxen sodium 220 mg capsule 440 mg PO DAILY 11/10/19 01/20/25 History acetaminophen 650 mg 650 mg PO Q12H 11/20/20 01/20/25 History tablet,extended release (Tylenol Arthritis Pain) tadalafil 20 mg tablet (Cialis) 20 mg PO DAILY PRN Sexual Activity 06/04/21 01/20/25 History cyclobenzaprine 5 mg tablet 5 mg PO BID PRN muscle spasm #180 04/11/24 01/20/25 Rx tabs cholecalciferol (vitamin D3) 50 50 mcg PO DAILY #90 tabs 10/05/24 01/20/25 Rx mcg (2,000 unit) tablet omeprazole 20 mg capsule,delayed 20 mg PO DAILY #90 caps 10/05/24 01/20/25 Rx release losartan 50 mg-hydrochlorothiazide 1 tablet PO DAILY #90 tabs 01/09/25 01/20/25 Rx 12.5 mg tablet zolpidem 10 mg tablet 10 mg PO QHS PRN insomnia #30 tabs 02/06/25 Rx Allergies Allergy/AdvReac Type Severity Reaction Status Date / Time No Known Allergies Allergy Verified 02/03/25 08:26 Vital Signs Vital Signs - 24 hr 02/09/25 06:53 02/09/25 11:07 02/09/25 11:20 Temperature 97.4 F L 97.3 F L Pulse Rate 81 99 99 Respiratory Rate 14 14 Blood Pressure 141/81 H 132/78 146/80 H Pulse Oximetry 95 95 97 Oxygen Delivery Room Air Simple Face Mask Simple Face Mask Oxygen Flow Rate 8 8 02/09/25 11:25 02/09/25 11:35 02/09/25 11:50 Temperature Pulse Rate 100 106 H Respiratory Rate 12 18 Blood Pressure 164/93 H 168/97 H Pulse Oximetry 98 98 94 Oxygen Delivery Simple Face Mask Simple Face Mask Room Air Oxygen Flow Rate 8 8 02/09/25 12:05 02/09/25 12:20 02/09/25 12:35 Temperature Pulse Rate 98 102 H 101 H Respiratory Rate 12 16 12 Blood Pressure 166/85 H 174/98 H 155/90 H Pulse Oximetry 94 97 97 Oxygen Delivery Nasal Cannula Nasal Cannula Nasal Cannula Oxygen Flow Rate 5 3 3 02/09/25 12:50 02/09/25 13:05 02/09/25 13:28 Temperature 97.1 F L Pulse Rate 101 H 99 Respiratory Rate 18 14 Blood Pressure 176/99 H 165/101 H Pulse Oximetry 100 100 100 Oxygen Delivery Nasal Cannula Nasal Cannula Nasal Cannula Oxygen Flow Rate 3 3 3 02/09/25 13:43 02/09/25 13:48 02/09/25 14:19 Temperature Pulse Rate Respiratory Rate Blood Pressure Pulse Oximetry 100 93 Oxygen Delivery Room Air Nasal Cannula Room Air Oxygen Flow Rate 3 Exam Narrative: General: In no acute distress, well nourished Head: atraumatic, no encephalopathy Eyes: PERRLA, sclera clear ENT: moist mucous membranes, nasal passages clear Neck: supple, no JVD, no adenopathy, trachea midline Cardiac: Normal S1 and S2. RRR, No murmur, gallops or friction rubs, peripheral pulses intact. Respiratory: Lungs clear to auscultation, no adventitious lung sounds, currently on room air Gastrointestinal: soft, non-distended, non-tender, normoactive bowel sounds. : voiding without difficulty. Extremities: moves all extremities well, no edema Skin: L knee incision with OR dressing Neuro: Alert and oriented x4, cranial nerves intact, no neuro deficits. Psych: normal mood, normal affect, interactive Results Imaging Radiologist's impression: EXAMINATION: [id number] DATE: 02/09/2025 11:06 INDICATION: Left knee arthroplasty. Postop. TECHNIQUE: 2 views of left knee were obtained. COMPARISON: Left knee radiographs 01/18/2025 FINDINGS: There is a total left knee arthroplasty without patellar resurfacing in near-anatomic alignment. There are osteophytes of the patella, likely with interval resection. There is gas in the knee joint and soft tissues, consistent with recent surgery. IMPRESSION: 1. Total left knee arthroplasty in near-anatomic alignment. Reviewed, dictated and finalized at location B. Quality VTE Prophylaxis VTE prophylaxis: pharmacologic ordered Hospitalist MIPS Advance Care Plan I have confirmed that the patient's Advanced Care Plan is present, code status is documented, or surrogate decision maker is listed in patient medical record.: Yes Medication Reconciliation I have utilized all available resources to obtain, update and review the patients current medications (includes all prescriptions, OTC, herbals, cannabis, and nutritional supplements).: Yes
[2025-02-09] MEDS: SENNA/DOCUSATE SODIUM TABLET 2 TAB PO (16:42)
[2025-02-09] MEDS: VANCOMYCIN 1,000 MG/NS 250 ML 1,000 MG/250 ML BAG 250 MG IVPB (17:34)
[2025-02-09] MEDS: FAMOTIDINE 20 MG TABLET PO (20:34)
[2025-02-09] MEDS: WATER FOR IRRIGATION, STERILE 1,000 ML BOTTLE 1000 ML (23:45)
[2025-02-10] MEDS: ACETAMINOPHEN 325 MG TABLET 650 MG PO ×3 (00:20→08:13)
[2025-02-10] MEDS: oxyCODONE HCL (*CRX) 5 MG TAB IR PO ×3 (00:20→08:12)
[2025-02-10 00:42] VITALS: BP 120/69; PULSE 83; RESP 16; TEMP 36.8; O2SAT 96
[2025-02-10 04:28] VITALS: BP 103/67; PULSE 85; RESP 18; TEMP 36.2; O2SAT 98
[2025-02-10] MEDS: VANCOMYCIN 1,000 MG/NS 250 ML 1,000 MG/250 ML BAG 250 MG IVPB (05:18)
[2025-02-10 06:19] LABS: Basophils Percent Auto 0.2 % (0.2-1.2); Hematocrit 34.9 % (42.0-52.0); Hemoglobin 11.5 g/dL (14.0-18.0); Immature Granulocyte Absolute 0.06 K/mm3 (0.00-0.031); Immature Granulocyte Percent A 0.6 % (0-0.5); Lymphocytes Absolute Auto 0.59 K/mm3 (0.9-3.2); Lymphocytes Percent Auto 5.5 % (18.3-44.2); Mean Corpuscular Hemoglobin 29.1 pg (26-34); Mean Corpuscular Volume 88.4 fl (80-100); Mean Platelet Volume 8.8 fl (7.4-10.4); Monocytes Absolute Auto 0.9 K/mm3 (0.1-0.6); Monocytes Percent Auto 8.6 % (2.6-8.5); Neutrophils Absolute Auto 9.2 K/mm3 (1.3-6.7); Neutrophils Percent Auto 85.1 % (45.5-73.1); Platelet Count Result 271 k/mm3 (150-375); Red Blood Count 3.95 M/mm3 (4.6-6.20); Red Cell Distribution Width 13.7 % (11.5-14.5); White Blood Count 10.8 K/mm3 (4.5-10.0)
[2025-02-10 06:27] LABS: Anion Gap 8 mmol/L (4-12); Blood Urea Nitrogen 18 mg/dL (9-20); Calcium 7.9 mg/dL (8.4-10.2); Carbon Dioxide 29 mmol/L (22-30); Chloride 101 mmol/L (98-107); Estimated CRCL calculation 79 ml/min; Estimated Glomerular Filt Rate > 60; Glucose 109 mg/dL (65-110); Potassium 3.6 mmol/L (3.4-5.0); Sodium 138 mmol/L (137-145)
--- NOTE | 2025-02-10 07:56 | P.PNOP_ITS ---
Subjective Subjective Date/Time Seen: 02/10/25 07:56 Interval history: Postop day 1 patient is alert. He is afebrile vital signs are stable. Dressing is dry and intact. Patient was up walking with physical therapy yesterday in the halls. Pain is very well controlled. Neurovascularly he is intact. Morning labs are noted. Overall patient is doing very well is anxious to go home. He will work with Physical therapy this morning and once IV antibiotics have been completed he will be discharged home later this morning. Objective Data Vital Signs Vital Signs: Vital Signs - 24 hr 02/09/25 11:07 02/09/25 11:20 02/09/25 11:25 Temperature 97.3 F L Pulse Rate 99 99 Respiratory Rate 14 14 Blood Pressure 132/78 146/80 H Pulse Oximetry 95 97 98 Oxygen Delivery Simple Face Mask Simple Face Mask Simple Face Mask Oxygen Flow Rate 8 8 8 02/09/25 11:35 02/09/25 11:50 02/09/25 12:05 Temperature Pulse Rate 100 106 H 98 Respiratory Rate 12 18 12 Blood Pressure 164/93 H 168/97 H 166/85 H Pulse Oximetry 98 94 94 Oxygen Delivery Simple Face Mask Room Air Nasal Cannula Oxygen Flow Rate 8 5 02/09/25 12:20 02/09/25 12:35 02/09/25 12:50 Temperature Pulse Rate 102 H 101 H 101 H Respiratory Rate 16 12 18 Blood Pressure 174/98 H 155/90 H 176/99 H Pulse Oximetry 97 97 100 Oxygen Delivery Nasal Cannula Nasal Cannula Nasal Cannula Oxygen Flow Rate 3 3 3 02/09/25 13:05 02/09/25 13:28 02/09/25 13:30 Temperature 97.1 F L 97.2 F L Pulse Rate 99 98 Respiratory Rate 14 18 Blood Pressure 165/101 H 157/85 H Pulse Oximetry 100 100 100 Oxygen Delivery Nasal Cannula Nasal Cannula Oxygen Flow Rate 3 3 02/09/25 13:43 02/09/25 13:48 02/09/25 14:14 Temperature Pulse Rate Respiratory Rate Blood Pressure Pulse Oximetry 100 Oxygen Delivery Room Air Nasal Cannula Room Air Oxygen Flow Rate 3 02/09/25 14:15 02/09/25 14:19 02/09/25 15:15 Temperature 98.6 F 98.5 F Pulse Rate 101 H 94 Respiratory Rate 20 20 Blood Pressure 158/86 H 126/80 Pulse Oximetry 99 93 93 Oxygen Delivery Room Air Oxygen Flow Rate 02/09/25 20:14 02/09/25 20:35 02/10/25 00:42 Temperature 98.8 F 98.3 F Pulse Rate 94 94 83 Respiratory Rate 18 18 16 Blood Pressure 108/78 120/69 Pulse Oximetry 96 96 96 Oxygen Delivery Room Air Oxygen Flow Rate 02/10/25 04:28 Temperature 97.2 F L Pulse Rate 85 Respiratory Rate 18 Blood Pressure 103/67 Pulse Oximetry 98 Oxygen Delivery Oxygen Flow Rate Intake/Output Intake/Output: Intake & Output 02/07/25 02/08/25 02/09/25 02/10/25 23:59 23:59 23:59 23:59 Intake Total 1390 Balance 1390 Meds/Results Medications: Active Medications Generic Name Dose Route Start Last Admin Trade Name Freq PRN Reason Stop Dose Admin Acetaminophen 650 mg 02/09/25 13:00 02/10/25 04:48 Acetaminophen 325 Mg Tablet PO 650 mg Q4H MARLYN Administration Apixaban 2.5 mg 02/10/25 09:00 Apixaban 2.5 Mg Tablet PO 02/21/25 21:01 Q12HR MARLYN Celecoxib 100 mg 02/10/25 08:00 Celecoxib 100 Mg Capsule PO DAILY@0800 MARLYN Diphenhydramine HCl 25 mg 02/09/25 13:13 Diphenhydramine Hcl Inj 50 Mg/Ml Vial IV PUSH Q6H PRN Itching Doxycycline Hyclate 100 mg 02/10/25 09:00 Doxycycline Hyclate 100 Mg Tablet PO Q12HR MARLYN Famotidine 20 mg 02/09/25 21:00 02/09/25 20:34 Famotidine 20 Mg Tablet PO 20 mg Q12HR MARLYN Administration Hydrochlorothiazide 12.5 mg 02/10/25 09:00 Hydrochlorothiazide 12.5 Mg Capsule PO DAILY MARLYN Loratadine 10 mg 02/09/25 13:13 Loratadine 10 Mg Tablet PO DAILY PRN ALLERGIES Losartan Potassium 50 mg 02/10/25 09:00 Losartan Potassium 50 Mg Tablet PO 03/12/25 08:59 DAILY MARLYN Morphine Sulfate 2 mg 02/09/25 13:13 Morphine Sulfate (*Crx) 2 Mg/Ml Inj IV PUSH Q2H PRN Breakthrough Pain Rated 4-6 or NPO Naloxone HCl 0.1 mg 02/09/25 13:13 Naloxone Hcl 0.4 Mg/Ml Vial IV PUSH Q2M PRN Opiate Reversal Ondansetron HCl 4 mg 02/09/25 13:13 Ondansetron Inj 4 Mg/2 Ml Vial IV PUSH Q4H PRN Nausea And Vomiting Oxycodone HCl 5 mg 02/09/25 13:00 02/10/25 04:48 Oxycodone Hcl (*Crx) 5 Mg Tab Ir PO 5 mg Q4H MARLYN Administration Oxycodone HCl 5 mg 02/09/25 13:13 Oxycodone Hcl (*Crx) 5 Mg Tab Ir PO Q4H PRN Pain Rated 7-10 Pantoprazole Sodium 40 mg 02/10/25 09:00 Pantoprazole 40 Mg Tablet PO QAM MARLYN Polyethylene Glycol 17 gm 02/10/25 09:00 Polyethylene Glycol 3350 17 Gm Powd.Pack PO QAM [facility] Senna/Docusate Sodium 2 tab 02/09/25 17:00 02/09/25 16:42 Senna/Docusate Sodium Tablet PO 2 tab BID MARLYN Administration Vitamin D 2,000 units 02/10/25 09:00 Cholecalciferol 1,000 Units Tablet PO DAILY [facility] Radiology Results: ITS Impressions Knee X-Ray 02/09/25 11:19 IMPRESSION: 1. Total left knee arthroplasty in near-anatomic alignment. Labs Labs: Laboratory Results - last 24 hr 02/10/25 05:50 WBC 10.8 H RBC 3.95 L Hgb 11.5 L D Hct 34.9 L MCV 88.4 MCH 29.1 MCHC 33.0 RDW 13.7 Plt Count 271 MPV 8.8 Immature Gran % (Auto) 0.6 H Neut % (Auto) 85.1 H Lymph % (Auto) 5.5 L [place] % (Auto) 8.6 H Eos % (Auto) 0.0 Baso % (Auto) 0.2 Lymph # (Auto) 0.59 L [place] # (Auto) 0.9 H Eos # (Auto) 0.0 Baso # (Auto) 0.0 Abs Immat Gran (auto) 0.06 H Absolute Neuts (auto) 9.2 H Absolute Nucleated RBC 0.000 Nucleated RBC % 0.0 Sodium 138 Potassium 3.6 Chloride 101 Carbon Dioxide 29 Anion Gap 8 BUN 18 Creatinine 0.82 Estim Creat Clear Calc 79 Estimated GFR > 60 Glucose 109 Calcium 7.9 L
[2025-02-10] MEDS: ceFAZolin 2 GM/D5W 50 ML 2 GM/50 ML BAG IVPB (08:11)
[2025-02-10] MEDS: PANTOPRAZOLE 40 MG TABLET PO (08:12)
[2025-02-10] MEDS: LOSARTAN POTASSIUM 50 MG TABLET PO (08:12)
[2025-02-10] MEDS: CHOLECALCIFEROL 1,000 UNITS TABLET 2000 UNITS PO (08:12)
[2025-02-10] MEDS: FAMOTIDINE 20 MG TABLET PO (08:12)
[2025-02-10] MEDS: DOXYCYCLINE HYCLATE 100 MG TABLET PO (08:12)
[2025-02-10] MEDS: SENNA/DOCUSATE SODIUM TABLET 2 TAB PO (08:12)
[2025-02-10] MEDS: hydroCHLOROthiazide 12.5 MG CAPSULE PO (08:12)
[2025-02-10] MEDS: CELECOXIB 100 MG CAPSULE PO (08:13)
[2025-02-10] MEDS: APIXABAN 2.5 MG TABLET PO (08:13)
[2025-02-10] MEDS: polyethylene glycoL 3350 17 GM POWD.PACK PO (08:14)
--- NOTE | 2025-02-10 08:59 | PCPTNOTE ---
Attempted to see patient for PT, however patient working with OT
--- NOTE | 2025-02-10 09:58 | P.CONIM_ITS ---
Assessment and Plan Assessment and plan (1) Osteoarthritis of left knee: Code(s): M17.12 - Unilateral primary osteoarthritis, left knee Status: Acute Assessment and Plan: * Patient is post op day 0 from left total knee arthroplasty * continue incentive spirometry q.2 hours while awake * PT and OT ordered * orthopedic surgery primary * Eliquis 2.5 mg p.o. b.i.d. ordered per surgery team * continue pain control- well controlled. * continue to ice and elevate (2) Essential (primary) hypertension: Code(s): I10 - Essential (primary) hypertension Status: Acute Assessment and Plan: * blood pressure ranging 155/90 t 176/99 * continue losartan and kvfheitrcqteqlwkyod-czxseioo-dvapsj (3) GERD without esophagitis: Code(s): K21.9 - Gastro-esophageal reflux disease without esophagitis Status: Acute Assessment and Plan: * start Protonix 40 mg daily * tums as needed (4) LOPEZ (obstructive sleep apnea): Code(s): G47.33 - Obstructive sleep apnea (adult) (pediatric) Status: Acute Assessment and Plan: * order placed to use home CPAP HPI Date of Consult Consult date: 02/10/25 Requesting Physician: Isael Alvares MD Primary Care Provider: Merediht Rsaheed MD Consult Narrative Narrative: Marques Springer is a 69 year old male with a significant past medical history of prostate cancer status post prostatectomy, obesity, LOPEZ, hypertension, GERD, prediabetes, osteoarthritis who presented to the hospital for elective left total knee arthroplasty with Dr. Alvares. 02/10- Postop day 1. pt is alert and pleasant. He is afebrile, vs reviewed and stable. Dressing is dry and intact. Patient walked with therapy and did well. Pain is well controlled. possible discharge per primary team later today. Review of Systems 2 Review of Systems: All systems reviewed & are unremarkable except as noted in HPI and below PMFSH Past Medical History Medical History Prediabetes History of prostate cancer Obesity Leucopenia History of colon polyps Osteoarthritis LOPEZ (obstructive sleep apnea) Insomnia History of colon polyps Environmental allergies Erectile dysfunction BPH NOS w/o ur obs/LUTS resolved status post total prostatectomy secondary to prostate cancer in July 2019. Prostate cancer Chronic neck and back pain Essential (primary) hypertension GERD without esophagitis Degenerative arthritis of knee, bilateral Cancer Surgical History Surgical History H/O radiofrequency ablation (RFA) of nerve of lumbar spine (~09/22/23) History of carpal tunnel surgery of left wrist (~2008) History of arthroscopy of both knees (~11/2012) 11/2012 - bilateral meniscus repair History of prostatectomy (~07/2019) 07/2019 Hx of decompressive lumbar laminectomy (~03/2013) S/P cervical spinal fusion (~04/2016) Family History Family History Mother Diabetes mellitus Hypertension Cerebrovascular accident Father Family history of tuberculosis, Onset Age: 74 Cerebrovascular accident, Onset Age: 74 Patient's father is Heart disease Family history of alcoholism Sibling Patient's sister is in good health Social History Social History Smoking status: Never smoker Second hand tobacco smoke exposure: No Alcohol intake: current Alcohol use details: occasionally Substance use: never Substance use type: does not use Do You Feel Safe in your Home?: Yes Lack of Transportation: No Lack of Food: Never True Current Housing: I Have Housing Concerned About Future Housing: No Difficulty Paying Gas/Electric Bills: No Difficulty Paying for Meds: No Currently Unemployed: No Education: High School Diploma/GED Difficulty w/ Childcare or Family Care: No Living arrangements: with family 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/Education: 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[employer] Gender identity (if verbalized by the patient): Male Spiritual care concerns: No Meds Home Medications and Allergies Home Medications ?Medication ?Instructions ?Recorded ?Confirmed ?Type cetirizine 10 mg tablet 10 mg PO PRN ALLERGIES 11/10/19 01/20/25 History adzpltas-vt-uehno 300 mcg-K 60 1 tablet PO DAILY 11/10/19 01/20/25 History mcg-lycop 600 mcg-lutein 300 mcg tablet (Centrum Silver Men) tadalafil 20 mg tablet (Cialis) 20 mg PO DAILY PRN Sexual Activity 06/04/21 01/20/25 History cholecalciferol (vitamin D3) 50 50 mcg PO DAILY #90 tabs 10/05/24 01/20/25 Rx mcg (2,000 unit) tablet omeprazole 20 mg capsule,delayed 20 mg PO DAILY #90 caps 10/05/24 01/20/25 Rx release losartan 50 mg-hydrochlorothiazide 1 tablet PO DAILY #90 tabs 01/09/25 01/20/25 Rx 12.5 mg tablet acetaminophen 325 mg tablet 650 mg (2 x 325 mg) PO Q4H #90 tabs 02/10/25 Rx apixaban 2.5 mg tablet (Eliquis) 2.5 mg PO Q12HR #42 tabs 02/10/25 Rx celecoxib 100 mg capsule (Celebrex) 100 mg PO DAILY@0800 #14 caps 02/10/25 Rx doxycycline hyclate 100 mg tablet 100 mg PO Q12HR #14 tabs 02/10/25 Rx oxycodone 5 mg tablet 5 mg PO Q4H PRN pain #40 tabs 02/10/25 Rx polyethylene glycol 3350 17 gram 17 g PO QAM #30 ea 02/10/25 Rx oral powder packet (Miralax) sennosides 8.6 mg-docusate sodium 2 tab PO BID #60 tabs 02/10/25 Rx 50 mg tablet (Senokot-S) Allergies Allergy/AdvReac Type Severity Reaction Status Date / Time No Known Allergies Allergy Verified 02/03/25 08:26 Vital Signs Vital Signs - 24 hr 02/09/25 11:07 02/09/25 11:20 02/09/25 11:25 Temperature 97.3 F L Pulse Rate 99 99 Respiratory Rate 14 14 Blood Pressure 132/78 146/80 H Pulse Oximetry 95 97 98 Oxygen Delivery Simple Face Mask Simple Face Mask Simple Face Mask Oxygen Flow Rate 8 8 8 02/09/25 11:35 02/09/25 11:50 02/09/25 12:05 Temperature Pulse Rate 100 106 H 98 Respiratory Rate 12 18 12 Blood Pressure 164/93 H 168/97 H 166/85 H Pulse Oximetry 98 94 94 Oxygen Delivery Simple Face Mask Room Air Nasal Cannula Oxygen Flow Rate 8 5 02/09/25 12:20 02/09/25 12:35 02/09/25 12:50 Temperature Pulse Rate 102 H 101 H 101 H Respiratory Rate 16 12 18 Blood Pressure 174/98 H 155/90 H 176/99 H Pulse Oximetry 97 97 100 Oxygen Delivery Nasal Cannula Nasal Cannula Nasal Cannula Oxygen Flow Rate 3 3 3 02/09/25 13:05 02/09/25 13:28 02/09/25 13:30 Temperature 97.1 F L 97.2 F L Pulse Rate 99 98 Respiratory Rate 14 18 Blood Pressure 165/101 H 157/85 H Pulse Oximetry 100 100 100 Oxygen Delivery Nasal Cannula Nasal Cannula Oxygen Flow Rate 3 3 02/09/25 13:43 02/09/25 13:48 02/09/25 14:14 Temperature Pulse Rate Respiratory Rate Blood Pressure Pulse Oximetry 100 Oxygen Delivery Room Air Nasal Cannula Room Air Oxygen Flow Rate 3 02/09/25 14:15 02/09/25 14:19 02/09/25 15:15 Temperature 98.6 F 98.5 F Pulse Rate 101 H 94 Respiratory Rate 20 20 Blood Pressure 158/86 H 126/80 Pulse Oximetry 99 93 93 Oxygen Delivery Room Air Oxygen Flow Rate 02/09/25 20:14 02/09/25 20:35 02/10/25 00:42 Temperature 98.8 F 98.3 F Pulse Rate 94 94 83 Respiratory Rate 18 18 16 Blood Pressure 108/78 120/69 Pulse Oximetry 96 96 96 Oxygen Delivery Room Air Oxygen Flow Rate 02/10/25 04:28 Temperature 97.2 F L Pulse Rate 85 Respiratory Rate 18 Blood Pressure 103/67 Pulse Oximetry 98 Oxygen Delivery Oxygen Flow Rate Exam 2 Narrative: General: In no acute distress, well nourished Head: atraumatic, no encephalopathy Eyes: PERRLA, sclera clear ENT: moist mucous membranes, nasal passages clear Neck: supple, no JVD, no adenopathy, trachea midline Cardiac: Normal S1 and S2. RRR, No murmur, gallops or friction rubs, peripheral pulses intact. Respiratory: Lungs clear to auscultation, no adventitious lung sounds, currently on room air Gastrointestinal: soft, non-distended, non-tender, normoactive bowel sounds. : voiding without difficulty. Extremities: moves all extremities well, no edema Skin: L knee incision with OR dressing Neuro: Alert and oriented x4, cranial nerves intact, no neuro deficits. Psych: normal mood, normal affect, interactive Results Labs 02/10/25 05:50 02/10/25 05:50 Labs: Short CBC 02/10/25 Range/Units 05:50 WBC 10.8 H (4.5-10.0) K/mm3 Hgb 11.5 L D (14.0-18.0) g/dL Hct 34.9 L (42.0-52.0) % Plt Count 271 (150-375) k/mm3 [facility] 02/10/25 05:50 Sodium 138 Potassium 3.6 Chloride 101 Carbon Dioxide 29 BUN 18 Creatinine 0.82 Glucose 109 Calcium 7.9 L Quality VTE Prophylaxis VTE prophylaxis: pharmacologic ordered
== END 2025-02-10 11:05 | disposition home or self-care (01) ==
LOC: ANHSURGERY 13:05 → ANH3MEDSUR 13:14
PROVIDERS: Physician Assistant Surgical; PCP Family Medicine; Visit Provider Orthopaedic Surgery
PROC: (CPT 27447; principal; 2025-02-09 07:30)
DX: M17.0 Bilateral primary osteoarthritis of knee (principal); I10 Essential (primary) hypertension; K21.9 Gastro-esophageal reflux disease without esophagitis; G47.33 Obstructive sleep apnea (adult) (pediatric); E66.9 Obesity, unspecified; Z68.37 Body mass index [BMI] 37.0-37.9, adult
CPT/HCPCS: 27447; 20610; 36415; 73560; 80048; 85025; 86850; 86900; 86901; 97110; 97161; 97165; 97530; 97535; A9270; C1713; C1776; J0171; J0690; J1010; J1100; J1171; J1885; J2003; J2250; J2270; J2405; J2704; J2795; J3010; J3370; J7120

== ENCOUNTER 2025-04-05 11:53 | Outpatient (CLI) | payer MEDICARE, SELFPAY ==
--- OUTSIDE RECORDS SUMMARY | 2025-04-05 12:20 | XMS_ITS | Referral Summary ---
Author Organization [facility] Address [address] [place] [place] [address] Care Team Providers Care Face Boss Name Role Phone Alejandra Quintanilla MD Primary [...] on file Legal Sex Male 9:13 PM [employer] Gender Identity Not on file Sexual Orientation [...] Not on file Insurance MEDICARE [facility] MEDICARE ADVANTAGE [employer] MEDICARE ADVANTAGE Care Teams Face Boss Relationship Specialty Start Date End Date Alejandra Quintanilla MD [address] [place] [address] PCP - General 02/24/17
--- OUTSIDE RECORDS SUMMARY | 2025-04-05 12:20 | XMS_ITS | Encounter Summary ---
Author Organization [facility] Address [address] [place] [address] Care Team Providers Care Rod Greaser Name Role Phone Alejandra Quintanilla MD Primary Care Provider + Encounter Details Date Type Department Care Team (Late st Contact Info) Description 06/09/2019 Lab Requisition [facility] Care Pathology Lab [address] [place] [address] Mandy Graves MD [address] [place] [address] Elevated prostate specific antigen (PSA) Social History Tobacco Use Types Packs/Day Years Used Date Smoking Tobacco: Never Assessed Sex and Gender Information Value Date Recorded Sex Assigned at Not on file Legal Sex Male 12:11 PM CDT Gender Identity Not on file Sexual Orientation Not on file documented as of this encounter Plan of Treatment Not on file documented as of this encounter Visit Diagnoses Diagnosis Elevated prostate specific antigen (PSA) documented in this encounter Care Teams Rod Greaser Relationship Specialty Start Date End Date Alejandra Quintanilla MD [address] [facility] [address] [place] [address] PCP - General Family Medicine 08/22/17 documented as of this encounter
--- OUTSIDE RECORDS SUMMARY | 2025-04-05 12:20 | XMS_ITS | Clinical Summary ---
Author Organization [facility] Address [address] [place] [address] Care Team Providers Care Preparatory Technician Name Role Phone Alejandra Quintanilla MD Primary Care Provider +1- [phone] Social History Tobacco Use Types Packs/Day Years Used Date Smoking Tobacco: Never Assessed Sex and Gender Information Value Date Recorded Sex Assigned at Not on file Legal Sex Male 4:55 PM CDT Gender Identity Not on file Sexual Orientation Not on file Last Filed Vital Signs Vital Sign Reading Time Taken Comments Blood Pressure 130/90 12/13/2012 5:35 PM SUPERVISOR WEBBING Pulse 75 12/13/2012 5:35 PM SUPERVISOR WEBBING Temperature - - Respiratory Rate - - Oxygen Saturation - - Inhaled Oxygen Concentration - - Weight 83.9 kg (185 lb) 12/13/2012 5:35 PM SUPERVISOR WEBBING Height 162.6 cm (5' 4 ) 12/13/2012 5:35 PM SUPERVISOR WEBBING Body Mass Index 31.76 12/13/2012 5:35 PM SUPERVISOR WEBBING Plan of Treatment Health Maintenance Due Date Last Done Comments Colorectal Cancer Screening Colonoscopy (10 Years) 1957 Hepatitis C 1975 DTaP, Tdap and Td Vaccines ( 1 - Tdap) 1976 Pneumococcal Vaccine: 50+ Ye ars (1 of 1 - PCV) 2007 Zoster Vaccines (1 of 2) 2007 COVID-19 Vaccine ( - 2023-2 5 season) 2024 RSV Immunization or 60+ Years (1 [...] age to complete this topic Care Teams Preparatory Technician Relationship Specialty Start Date End Date Alejandra Quintanilla MD [address] [facility] [address] [facility] [place] [address] [place] [address] PCP - General 05/04/14
--- OUTSIDE RECORDS SUMMARY | 2025-04-05 12:20 | XMS_ITS | Clinical Summary ---
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 Gender Identity Not on file Sexual Orientation [...] 06/19/2022, 09/14/2021, Additional history exists Influenza Vaccine (Season Ended) 2025 09/12/2022, 09/14/2021, 09/28/2020, Additional history exists DTaP/Tdap/Td Vaccine (3 - Td or Tdap) 08/31/2027 08/31/2017, 08/22/2017, 11/30/2016 Insurance MEDICARE [facility] Address: [facility] [address] [place] [address] COMMERCIAL GENERIC [facility] MEDICARE ADVANTAGE [facility] MEDICARE ADVANT[facility] Address: [address] [address] [place] [address] Care Teams Foundry Equipment Mechanic Relationship Specialty Start Date End Date Alejandra Quintanilla MD [address] [facility] [address] [place] [address] PCP - General 02/24/17
--- OUTSIDE RECORDS SUMMARY | 2025-04-05 12:20 | XMS_ITS | Clinical Summary ---
Author Organization [facility] Address [address] [place] [address] Care Team Providers Care Epidemiology Investigator Name Role Phone Alejandra Quintanilla MD Primary Care Provider + Source Comments [facility] ([email or web address]),non-owned Affiliates and Associated Physician Practices is amultiple site organization consisting of ambulatory clinics and hospital sitesin [place], [place], [place] and [place]. This disclosure is being madepursuant to the Care Everywhere program and may not contain all information available regarding this patient. Last updated 18.[facility] ([email or web address]) Allergies No known active allergies Immunizations Immunization Administration Dates Next Due INFLUENZA VACCINE, QUADR. [...] COLON CA SCREENING 1955 LIPID TESTING 1955 HEPATITIS C SCREENING 11/17/1975 PNEUMOCOCCAL VACCINE 50+ (1 of 1 - PCV) 2007 ZOSTER VACCINE (1 of 2) 2007 COVID-19 VACCINE (1 - 2023-2 5 season) 2024 DEPRESSION SCREENING 11/30/2024 INFLUENZA VACCINE (Season Ended) 2025 08/22/20 17 DTAP/TDAP/TD VACCINES (2 - T d or [...] on patient's age to complete this topic Insurance MEDICARE [employer] UHC MANAGED MEDICARE ADV AET MEDICARE Care Teams Epidemiology Investigator Relationship Specialty Start Date End Date Alejandra Quintanilla MD [address] [place] [address] PCP - General Family Medicine 08/22/17
[2025-04-05 13:46] LABS: Basophils Percent Auto 0.8 % (0.2-1.2); Eosinophils Absolute Auto 0.1 K/mm3 (0-0.3); Eosinophils Percent Auto 2.9 % (0-4.4); Hematocrit 43.8 % (42.0-52.0); Hemoglobin 14.1 g/dL (14.0-18.0); Immature Granulocyte Absolute 0.01 K/mm3 (0.00-0.031); Immature Granulocyte Percent A 0.2 % (0-0.5); Lymphocytes Absolute Auto 0.99 K/mm3 (0.9-3.2); Lymphocytes Percent Auto 20.6 % (18.3-44.2); Mean Corpuscular HGB Conc 32.2 g/dl (32-36); Mean Corpuscular Hemoglobin 28.3 pg (26-34); Mean Corpuscular Volume 87.8 fl (80-100); Mean Platelet Volume 8.8 fl (7.4-10.4); Monocytes Absolute Auto 0.4 K/mm3 (0.1-0.6); Monocytes Percent Auto 7.3 % (2.6-8.5); Neutrophils Absolute Auto 3.3 K/mm3 (1.3-6.7); Neutrophils Percent Auto 68.2 % (45.5-73.1); Platelet Count Result 305 k/mm3 (150-375); Red Blood Count 4.99 M/mm3 (4.6-6.20); Red Cell Distribution Width 13.6 % (11.5-14.5); White Blood Count 4.8 K/mm3 (4.5-10.0)
[2025-04-05 14:14] LABS: Alanine Aminotransferase 17 U/L (6-50); Albumin Level 4.5 g/dL (3.5-5.1); Alkaline Phosphatase 88 U/L (38-126); Anion Gap 7 mmol/L (4-12); Aspartate Amino Transferase 32 U/L (17-59); Bilirubin,Total 0.8 mg/dL (0.2-1.3); Blood Urea Nitrogen 17 mg/dL (9-20); Calcium 9.6 mg/dL (8.4-10.2); Carbon Dioxide 33 mmol/L (22-30); Chloride 99 mmol/L (98-107); Estimated Glomerular Filt Rate > 60; Glucose 95 mg/dL (65-110); Potassium 4.1 mmol/L (3.4-5.0); Sodium 139 mmol/L (137-145)
[2025-04-05 14:22] LABS: Vitamin D 25 Hydroxy 44.1 ng/mL
[2025-04-05 18:12] LABS: Hemoglobin A1C 5.2 % (<5.7)
== END 2025-04-05 11:54 | disposition home or self-care (01) ==
LOC: ANHGOSHLAB 11:54
PROVIDERS: PCP Family Medicine; Visit Provider Family Medicine
DX: E53.8 Deficiency of other specified B group vitamins (principal); D72.819 Decreased white blood cell count, unspecified; Z00.00 Encounter for general adult medical examination without abnormal findings; I10 Essential (primary) hypertension; R73.03 Prediabetes; E55.9 Vitamin D deficiency, unspecified
CPT/HCPCS: 36415; 80053; 82306; 82607; 83036; 84443; 85025

== ENCOUNTER 2025-08-16 09:50 | Outpatient (CLI) | payer MEDICARE, SELFPAY ==
--- OUTSIDE RECORDS SUMMARY | 2025-08-16 11:00 | XMS_ITS | Clinical Summary ---
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 Gender Identity Not on file Sexual Orientation [...] 8:04 AM CDT Height 160 cm (5' 3) 09/11/2024 8:04 AM CDT Body Mass Index [...] 2022 Depression Screening 04/14/2024 04/14/2023 Covid-19 Vaccine ( - 2024-2 6 season) 2025 11/13/2022, 06/19/2022, 09/14/2021, Additional history exists Influenza Vaccine (#1) 2025 , 09/14/2021, 09/28/2020, Additional history exists DTaP/Tdap/Td Vaccine (3 - Td or Tdap) 08/31/2027 08/31/2017, 08/22/2017, 11/30/2016 Insurance MEDICARE COMMERCIAL GENERIC [facility] MEDICARE ADVANTAGE [facility] MEDICARE ADVANTAGE [facility] MEDICARE Address: [address] [address] [place] [address] Care Teams Toucher Up Relationship Specialty Start Date End Date Alejandra Quintanilla MD [address] [facility] [address] [place] [address] PCP - General 02/24/17
--- OUTSIDE RECORDS SUMMARY | 2025-08-16 11:00 | XMS_ITS | Encounter Summary ---
Author Organization [facility] Address [address] [facility] [place] [address] Care Team Providers Care Applications Processor Name Role Phone Alejandra Quintanilla MD Primary Care Provider + Encounter Details Date Type Department Care Team (Late st Contact Info) Description 06/09/2019 Lab Requisition [facility] Care Pathology Lab [address] [place] [address] Mandy Graves MD [address] [place] [address] Elevated prostate specific antigen (PSA) Social History [...] (PSA) documented in this encounter Care Teams Applications Processor Relationship Specialty Start Date End Date Alejandra Quintanilla MD [address] [facility] [address] [place] [address] PCP - General Family Medicine 08/22/17 documented as of this encounter
--- OUTSIDE RECORDS SUMMARY | 2025-08-16 11:00 | XMS_ITS | Clinical Summary ---
Author Organization [facility] Address [address] [facility] [place] [address] Care Team Providers Care Fitter Armament Name Role Phone Alejandra Quintanilla MD Primary Care Provider + Source Comments [facility],non-owned Affiliates and Associated Physician Practices is amultiple site organization consisting of ambulatory clinics and hospital sitesin [place], [place] and [place]. This disclosure is being madepursuant to the Care Everywhere program and may not contain all information available regarding this patient. Last updated 18.[facility] Fetch MD Allergies No known active allergies Immunizations Immunization [...] 2007 ZOSTER VACCINE (1 of 2) 2007 DEPRESSION SCREENING 11/30/2024 COVID-19 VACCINE (1 - 2023-2 5 season) 2025 INFLUENZA VACCINE (#1) 2025 08/22/2017 DTAP/TDAP/TD VACCINES (2 - T d or [...] MEDICARE A[employer] UHC MANAGED MEDICARE ADV AET [facility] Address: [address] [place] [address] MEDICARE Care Teams Fitter Armament Relationship Specialty Start Date End Date Alejandra Quintanilla MD [address] [place] [address] PCP - General Family Medicine 08/22/17
--- OUTSIDE RECORDS SUMMARY | 2025-08-16 11:00 | XMS_ITS | Clinical Summary ---
Author Organization [facility] Address [address] [place] [address] Care Team Providers Care Brine Plant Operator Name Role Phone Alejandra Quintanilla MD Primary Care Provider +1- [phone] Social History Tobacco Use Types Packs/Day Years Used Date Smoking Tobacco: Never Assessed Sex and Gender Information Value Date Recorded Sex Assigned at Not on file Legal Sex Male 4:55 PM CDT Gender Identity Not on file Sexual Orientation Not on file Last Filed Vital Signs Vital Sign Reading Time Taken Comments Blood Pressure 130/90 12/13/2012 5:35 PM UNDERWRITING TECHNICIAN Pulse 75 12/13/2012 5:35 PM UNDERWRITING TECHNICIAN Temperature - - Respiratory Rate - - Oxygen Saturation - - Inhaled Oxygen Concentration - - Weight 83.9 kg (185 lb) 12/13/2012 5:35 PM UNDERWRITING TECHNICIAN Height 162.6 cm (5' 4) 12/13/2012 5:35 PM UNDERWRITING TECHNICIAN Body Mass Index 31.76 12/13/2012 5:35 PM UNDERWRITING TECHNICIAN Plan of Treatment Health Maintenance Due Date Last Done Comments Colorectal Cancer Screening Colonoscopy (10 Years) 1957 Hepatitis C 1975 DTaP, Tdap and Td Vaccines ( 1 - Tdap) 1976 Pneumococcal Vaccine: 50+ Ye ars (1 of 1 - PCV) 2007 Zoster Vaccines (1 of 2) 2007 COVID-19 Vaccine ( - 2023-2 5 season) 2025 RSV Immunization or 60+ Years (1 - [...] age to complete this topic Care Teams Brine Plant Operator Relationship Specialty Start Date End Date Alejandra Quintanilla MD [address] [facility] [address] [facility] [address] [place] [address] PCP - General 05/04/14
[2025-08-16 11:02] LABS: Hematocrit 42.3 % (42.0-52.0); Hemoglobin 13.9 g/dL (14.0-18.0); Immature Granulocyte Percent A 0.4 % (0-0.5); Lymphocytes Absolute Auto 0.74 K/mm3 (0.9-3.2); Mean Corpuscular HGB Conc 32.9 g/dl (32-36); Mean Corpuscular Hemoglobin 28.3 pg (26-34); Mean Corpuscular Volume 86.0 fl (80-100); Nucleated Red Blood Cells Absolute Auto 0.000 K/mm3 (0.0-0.012); Nucleated Red Blood Cells Perc 0.0 % (0.0-0.2); Platelet Count Result 276 k/mm3 (150-375); Red Blood Count 4.92 M/mm3 (4.6-6.20); White Blood Count 4.9 K/mm3 (4.5-10.0)
[2025-08-16 11:20] LABS: Albumin Level 4.0 g/dL (3.5-5.1); Anion Gap 5 mmol/L (4-12); Blood Urea Nitrogen 18 mg/dL (9-20); Calcium 8.9 mg/dL (8.4-10.2); Carbon Dioxide 31 mmol/L (22-30); Chloride 101 mmol/L (98-107); Estimated Glomerular Filt Rate > 60; Glucose 99 mg/dL (65-110); Potassium 3.7 mmol/L (3.4-5.0); Sodium 137 mmol/L (137-145)
[2025-08-16 11:35] LABS: Hemoglobin A1C 5.8 % (<5.7)
== END 2025-08-16 09:51 | disposition home or self-care (01) ==
LOC: ANHSURGERY 09:56
PROVIDERS: PCP Family Medicine; Visit Provider Orthopaedic Surgery
DX: Z01.812 Encounter for preprocedural laboratory examination (principal); M17.11 Unilateral primary osteoarthritis, right knee
CPT/HCPCS: 80048; 80307; 82040; 83036; 85025; 87081

== ENCOUNTER 2025-08-31 00:19 | Day surgery (SDC) | payer MEDICARE, SELFPAY ==
--- NOTE | 2025-08-16 09:51 | PC.NURSE ---
Report to the Outpatient Waiting Room, entrance under the green pavilion located off [facility], at time __6 AM____ on date _08/31/25 . Planned Procedure Time: __7:30 AM .? Time changes happen often and if your time is changed the preop area will call you the afternoon before. - You and your visitor will be asked to self-screen and do not enter if you have any COVID symptoms. Please call surgeon if you need to reschedule. - A mask is optional within the hospital at this time. Patients may have clear liquids (water, carbonated beverages, clear teas, apple juice) until 3 hours prior to surgery (4:30 AM) with a maximum of 20 ounces. - No food from midnight until time of surgery and no smoking, or chewing tobacco (or any form of nicotine). No chewing gum, candy or mints. - Take only the following medications with a SIP of water on the morning of surgery: NONE DO NOT STOP ANY OF YOUR OTHER PRESCRIPTION MEDICATIONS PRIOR TO SURGERY EXCEPT THE FOLLOWING Hold all vitamins and supplements PER DR BAZZI Medications to discontinue per physician NAPROXIN HOLD 7 DAYS PRE OP PER DR BAZZI Date to take last dose 08/23/25 Please no make-up, nail bulgarian, hairspray, perfume, deodorant, or body powder the day of surgery.? No jewelry (including any body piercings) or valuables the day of surgery, leave them at home.? Please take a shower or bath the night before, or the morning of, surgery with an antibacterial soap.? Wear comfortable, loose fitting clothing.? Children are encouraged to wear pajamas. - Jewelry must be removed prior to entering the operating room.? Rings and piercings that are not removed may be cut off. - The hospital will not accept responsibility for valuables.? - Please leave all valuables, including medications, at home the day of surgery. If you are going home after surgery, a licensed ross carrier driver must drive you home.? - NO public transportation without another adult if you receive anesthesia. - We recommend that an adult stay with you for 24 hours following discharge. - We also recommend that you do not drive, make important decision, drink alcoholic beverages, or take any drugs that were not prescribed by your health care provider for at least 24 hours after your discharge time. For Pediatric surgeries, we recommend two adults accompany the child home. Follow any additional instructions given to you from your surgeon. VERBAL AND WRITTEN instructions given to _PATIENT and asked if any additional questions and then verbalized understanding. Patient advised to call surgeon office or pre surgery nurse liaison [phone] if any additional questions.
[2025-08-16 10:00] VITALS: BMI 37.5
[2025-08-16 10:37] VITALS: BP 125/79; PULSE 77; RESP 18; TEMP 36.7; O2SAT 97
--- NOTE | 2025-08-30 15:55 | PM.IMHP ---
H&P: HPI History of Present Illness Date/Time: 08/30/25 15:55 Chief Complaint: Right knee pain Narrative: Patient is a 69-year-old gentleman who presents for right total knee arthroplasty. He has [id number] medial compartment osteoarthritis of the right knee. He has been taking naproxen 500 mg twice daily his had periodic cortisone shots every 3 months and these treatments are no longer giving him satisfactory pain relief in the would like to proceed with knee replacement this time. He underwent left total knee replacement in January of this year and recovered without complication. He does have a history of a DVT in the left calf in 2012 so we used 6 weeks of Eliquis after the surgery for DVT prophylaxis and we will do so with his right knee as well. Physical examination On exam today he has range of motion of his right knee from 5-125 degrees. Mild varus deformity noted. He has normal stability. He had 5/5 quadriceps strength. He had full range of motion right hip without discomfort. Negative Stinchfield maneuver. Normal varus valgus and AP stability. He had 2+ dorsalis pedis and posterior tibial artery pulses palpable. He had normal sensation the right lower extremity except for the proximal 1/2 of the anterolateral calf. He had trace pretibial edema bilaterally no pedal edema. His calves are nontender. He walks with a very slight limp relative to his right leg. He is alert and oriented pleasant gentleman in no acute distress. His BMI today is 37.2. X-rays X-rays of the right knee standing AP and PA flexion Stork views were obtained today in the office which demonstrate moderate narrowing of the medial compartment joint space in the AP stork view with hypertrophic change and medial osteophyte that is prominent. On the PA flexion Stork view it is [id number] in the medial compartment. [facility] Past Medical History Medical History History of deep venous thrombosis (DVT) of distal vein of left lower extremity (~2012) Prediabetes History of prostate cancer Obesity Leucopenia History of colon polyps Osteoarthritis LOPEZ (obstructive sleep apnea) Insomnia History of colon polyps Environmental allergies Erectile dysfunction BPH NOS w/o ur obs/LUTS resolved status post total prostatectomy secondary to prostate cancer in July 2019. Prostate cancer Chronic neck and back pain Essential (primary) hypertension GERD without esophagitis Degenerative arthritis of knee, bilateral Cancer Surgical History Surgical History History of total left knee replacement (~01/2025) H/O radiofrequency ablation (RFA) of nerve of lumbar spine (~09/22/23) History of carpal tunnel surgery of left wrist (~2008) History of arthroscopy of both knees (~11/2012) 11/2012 - bilateral meniscus repair History of prostatectomy (~07/2019) 07/2019 Hx of decompressive lumbar laminectomy (~03/2013) S/P cervical spinal fusion (~04/2016) Family History Family History Mother Diabetes mellitus Hypertension Cerebrovascular accident Father Family history of tuberculosis, Onset Age: 74 Cerebrovascular accident, Onset Age: 74 Patient's father is Heart disease Family history of alcoholism Sibling Patient's sister is in good health Social History Social History Smoking status: Never smoker Second hand tobacco smoke exposure: No Additional smoking assessment comments: DENIES ANY FORM OF TOBACCO USE Alcohol intake: current Alcohol use details: occasionally Substance use: never Substance use type: does not use Current Housing: Decline to Answer Concerned About Future Housing: Decline to Answer Difficulty Paying Gas/Electric Bills: Decline to Answer Difficulty Paying for Meds: Decline to Answer Currently Unemployed: Decline to Answer Education: Decline to Answer Difficulty w/ Childcare or Family Care: Decline to Answer Living arrangements: with family Occupation/Education: retired 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 Gender identity (if verbalized by the patient): Male Spiritual care concerns: No Meds Home Medications and Allergies Home Medications ?Medication ?Instructions ?Recorded ?Confirmed ?Type lleqnptd-hy-fdtuv 300 mcg-K 60 1 tablet PO DAILY 11/10/19 08/16/25 History mcg-lycop 600 mcg-lutein 300 mcg tablet (Centrum Silver Men) tadalafil 20 mg tablet (Cialis) 20 mg PO DAILY PRN Sexual Activity 06/04/21 08/16/25 History cholecalciferol (vitamin D3) 50 50 mcg PO DAILY #90 tabs 10/05/24 08/16/25 Rx mcg (2,000 unit) tablet zolpidem 10 mg tablet 10 mg PO QHS PRN insomnia #90 tabs 03/15/25 08/16/25 Rx cetirizine 10 mg tablet 10 mg PO DAILY PRN ALLERGIES 04/05/25 08/16/25 History docusate sodium 100 mg capsule 100 mg PO DAILY 04/05/25 08/16/25 History (Dulcolax Stool Softener (docusate)) Naproxin 500 mg PO PRN 04/26/25 08/16/25 History cyclobenzaprine 5 mg tablet 5 mg PO BID PRN muscle spasm #60 06/19/25 08/16/25 Rx tabs omeprazole 20 mg capsule,delayed 20 mg PO DAILY #90 caps 06/30/25 08/16/25 Rx release losartan 50 mg-hydrochlorothiazide 1 tablet PO DAILY #90 tabs 07/10/25 08/16/25 Rx 12.5 mg tablet acetaminophen 500 mg tablet 1,000 mg PO PRN PRN pain 08/16/25 08/16/25 History (Acetaminophen Extra Strength) Allergies Allergy/AdvReac Type Severity Reaction Status Date / Time No Known Allergies Allergy Verified 08/16/25 10:00 Assessment and Plan Assessment and plan (1) Primary osteoarthritis of right knee: Code(s): M17.11 - Unilateral primary osteoarthritis, right knee Status: Acute Plan Assessment plan Patient has [id number]-[id number] medial compartment osteoarthritis the right knee his right knee is symptomatic enough that he has decided he would like to proceed with right knee replacement. I reviewed risks of surgery with him in detail. We discussed the numbness that will be lateral to the incision, difficulty kneeling after knee replacement and some patients will have chronic anterior knee soreness from the surgery. We talked about the risk of stiffness and he is going to make sure he is more aggressive with his range of motion exercises immediately after the surgery as he had a little bit of problems with stiffness in the left knee early on. Risk of blood clots was reviewed. Again we will plan to use 6 weeks of Eliquis after surgery. Risk of ligament injury fracture instability component loosening component wear and need for revision surgery was discussed. Risk of nerve injury bleeding and transfusion discussed. Risk of medical complications such as heart attack stroke pulmonary embolism and were reviewed. All of his questions were answered. We will plan to proceed as discussed. I discussed with him that if he notes more swelling in the right leg developing over the next couple of weeks I would recommend that he call us and we will obtain a stat venous duplex ultrasound to rule out DVT he has no signs of this today. Last cortisone injection was on May 15, 2025 in the right knee. He will stop the Naprosyn 7 days before surgery.
[2025-08-31] VITALS (9 sets, daily range): BP systolic 132–156; BP diastolic 71–96; PULSE 78–107; RESP 14–16; TEMP 35.7–37.1; O2SAT 95–100
--- NOTE | ~2025-08-31 | XR_ITS ---
EXAMINATION: [id number], 08/31/2025 12:04 CDT HISTORY: POST OP RIGHT TKA COMPARISON: No comparisons available. Findings: No acute fracture or malalignment. Prosthesis intact Soft tissues unremarkable. Impression: No acute fracture or malalignment. Reviewed, dictated and finalized at location P. Impression: No acute fracture or malalignment.
--- OUTSIDE RECORDS SUMMARY | 2025-08-31 00:21 | XMS_ITS | Clinical Summary ---
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
--- OUTSIDE RECORDS SUMMARY | 2025-08-31 00:21 | XMS_ITS | Clinical Summary ---
Author Organization [facility] Address [address] [facility] [place] [address] Care Team Providers Care Patient Services Clerk Name Role Phone Alejandra Quintanilla MD Primary Care Provider + Source Comments [facility] [employer],non-owned Affiliates and Associated Physician Practices is amultiple site organization consisting of ambulatory clinics and hospital sitesin [place], [place], [place] and [place]. This disclosure is being madepursuant to the Care Everywhere program and may not contain all information available regarding this patient. Last updated 18.[facility] Allergies No known active allergies Immunizations Immunization [...] MEDICARE AETNA UHC MANAGED MEDICARE ADV AET [facility] Address: [address] [place] [address] MEDICARE Care Teams Patient Services Clerk Relationship Specialty Start Date End Date Alejandra Quintanilla MD [address] [place] [address] PCP - General Family Medicine 08/22/17
--- OUTSIDE RECORDS SUMMARY | 2025-08-31 00:21 | XMS_ITS | Encounter Summary ---
Author Organization [facility] Address [address] [facility] [place] [address] Care Team Providers Care Designer Writer Name Role Phone Alejandra Quintanilla MD Primary Care Provider + Encounter Details Date Type Department Care Team (Late st Contact Info) Description 06/09/2019 Lab Requisition [facility] Care Pathology Lab [address] [place] [address] Mandy Graves MD [address] [place] [address] Elevated prostate specific antigen (PSA) Social History [...] (PSA) documented in this encounter Care Teams Designer Writer Relationship Specialty Start Date End Date Alejandra Quintanilla MD [address] [facility] [address] [place] [address] PCP - General Family Medicine 08/22/17 documented as of this encounter
--- OUTSIDE RECORDS SUMMARY | 2025-08-31 00:21 | XMS_ITS | Clinical Summary ---
Author Organization [facility] Address [address] [place] [address] Care Team Providers Care Machine Grainer Name Role Phone Alejandra Quintanilla MD Primary Care Provider +1- [phone] Social History Tobacco Use Types Packs/Day Years Used Date Smoking Tobacco: Never Assessed Sex and Gender Information Value Date Recorded Sex Assigned at Not on file Legal Sex Male 4:55 PM CDT Gender Identity Not on file Sexual Orientation Not on file Last Filed Vital Signs Vital Sign Reading Time Taken Comments Blood Pressure 130/90 12/13/2012 5:35 PM SUPERVISOR RECLAMATION Pulse 75 12/13/2012 5:35 PM SUPERVISOR RECLAMATION Temperature - - Respiratory Rate - - Oxygen Saturation - - Inhaled Oxygen Concentration - - Weight 83.9 kg (185 lb) 12/13/2012 5:35 PM SUPERVISOR RECLAMATION Height 162.6 cm (5' 4) 12/13/2012 5:35 PM SUPERVISOR RECLAMATION Body Mass Index 31.76 12/13/2012 5:35 PM SUPERVISOR RECLAMATION Plan of Treatment Health Maintenance Due Date [...] age to complete this topic Care Teams Machine Grainer Relationship Specialty Start Date End Date Alejandra Quintanilla MD [address] [facility] [facility] [address] [place] [address] PCP - General 05/04/14
[2025-08-31] MEDS: TRANEXAMIC ACID 1,000MG/ISO100 1,000 MG/100 ML BAG 200 MG IVPB (07:00)
[2025-08-31] MEDS: LACTATED RINGERS 1,000 ML 30 ML IV CONT ×2 (07:00→11:57)
[2025-08-31] MEDS: ACETAMINOPHEN 500 MG TABLET 1000 MG PO (07:00)
[2025-08-31] MEDS: VANCOMYCIN 1,500 MG/NS 500 ML BAG 250 MG IVPB (07:00)
--- NOTE | 2025-08-31 07:08 | P.PNAN_ITS ---
Anes - Initial Pre Proc Eval Procedure: Operation Date: 08/31/25 07:30 Proposed Procedures p Right Total Knee Arthroplasty - Isael Alvares MD Date/Time: 08/31/25 07:08 Surgeon: Isael Alvares MD Pre Op Diagnosis: OA right knee Patient Data Age: 69 Gender: M Height: 1.63 m Weight: 99.2 kg Last Vital Signs Temp 98.0 F 08/16/25 10:37 Pulse 77 08/16/25 10:37 Resp 18 08/16/25 10:37 BP 125/79 08/16/25 10:37 Pulse Ox 97 08/16/25 10:37 O2 Del Method Room Air 08/16/25 10:37 Allergies Allergy/AdvReac Type Severity Reaction Status Date / Time No Known Allergies Allergy Verified 08/16/25 10:00 Home Medications ?Medication ?Instructions ?Recorded ?Confirmed ?Type [id number] 300 mcg-K 60 1 tablet PO DAILY 11/1008/16/25 History mcg-lycop 600 mcg-lutein 300 mcg tablet (Centrum Silver Men) tadalafil 20 mg tablet (Cialis) 20 mg PO DAILY PRN Sex ual Activity 06/04/21 08/16/25 History cholecalciferol (vitamin D3) 50 50 mcg PO DAILY #90 ta bs 10/05/24 08/16/25 Rx mcg (2,000 unit) tablet zolpidem 10 mg tablet 10 mg PO QHS PRN insomnia #9 0 tabs 03/15/25 08/16/25 Rx cetirizine 10 mg tablet 10 mg PO DAILY PRN ALLERGIES 04/05/25 08/16/25 History docusate sodium 100 mg capsule 100 mg PO DAILY 5 08/16/25 History (Dulcolax Stool Softener (docusate)) Naproxin 500 mg PO PRN 04/26/2508/16 History cyclobenzaprine 5 mg tablet 5 mg PO BID PRN muscle spa sm #60 06/19/25 08/16/25 Rx tabs omeprazole 20 mg capsule,delayed 20 mg PO DAILY #90 ca ps 06/30/25 08/16/25 Rx release losartan 50 mg-hydrochlorothiazide 1 tablet PO DAILY # 90 tabs 07/10/25 08/16/25 Rx 12.5 mg tablet acetaminophen 500 mg tablet 1,000 mg PO PRN PRN pain 0 08/16/25 08/16/25 History (Acetaminophen Extra Strength) Patient hx anesthesia problems: other (Slow to awaken in the past. ) Family hx anesthesia problems: none Results Review: All pre-operative results and documents have been reviewed as part of the pre- operative evaluation. [facility] Past Medical History Medical History History of deep venous thrombosis (DVT) of distal vein of left lower extremity (~2012) Prediabetes History of prostate cancer Obesity Leucopenia History of colon polyps Osteoarthritis LOPEZ (obstructive sleep apnea) Insomnia History of colon polyps Environmental allergies Erectile dysfunction BPH NOS w/o ur obs/LUTS resolved status post total prostatectomy secondary to prostate cancer in July 2019. Prostate cancer Chronic neck and back pain Essential (primary) hypertension GERD without esophagitis Degenerative arthritis of knee, bilateral Cancer Surgical History Surgical History History of total left knee replacement (~01/2025) H/O radiofrequency ablation (RFA) of nerve of lumbar spine (~09/22/23) History of carpal tunnel surgery of left wrist (~2008) History of arthroscopy of both knees (~11/2012) 11/2012 - bilateral meniscus repair History of prostatectomy (~07/2019) 07/2019 Hx of decompressive lumbar laminectomy (~03/2013) S/P cervical spinal fusion (~04/2016) Family History Family History Mother Diabetes mellitus Hypertension Cerebrovascular accident Father Family history of tuberculosis, Onset Age: 74 Cerebrovascular accident, Onset Age: 74 Patient's father is Heart disease Family history of alcoholism Sibling Patient's sister is in good health Social History Social History Smoking status: Never smoker Second hand tobacco smoke exposure: No Alcohol intake: current Alcohol use details: occasionally Substance use: never Substance use type: does not use Current Housing: Decline to Answer Concerned About Future Housing: Decline to Answer Difficulty Paying Gas/Electric Bills: Decline to Answer Difficulty Paying for Meds: Decline to Answer Currently Unemployed: Decline to Answer Education: Decline to Answer Difficulty w/ Childcare or Family Care: Decline to Answer Living arrangements: with family Occupation/Education: retired 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 Prev C spine fusion noted. ) poor extension Neurological: alert and oriented Last oral intake: >/= 8 hours ASA classification: III Emergent: no Anesthetic plan: proceed Anesthesia type and monitoring: general ETT and standard monitoring Results Review: All pre-operative results and documents have been reviewed as part of the pre- operative evaluation. HTN, LOPEZ on CPAP, BMI 37. Informed Consent: The patient's anesthetic plan and its attendant risks and benefits were discussed with the patient/family/POA. Questions were solicited and answers provided to the satisfaction of the patient/family/POA.
--- NOTE | 2025-08-31 07:16 | WPDHPUPDATE1 ---
History and Physical Update Update Date/Time: 08/31/25 07:16 History and Physical has been reviewed, including an updated exam of the patient. There are NO changes in the patient's condition. Risks, benefits, and alternatives have been discussed and questions answered. Patient agrees to proceed with procedure.
[2025-08-31] MEDS: ceFAZolin 2 GM in SODIUM CHLORIDE 0.9% IV 50 ML 100 ML IVPB ×3 (07:50→23:28)
[2025-08-31] MEDS: SODIUM CHLORIDE 0.9% IV 37.7 ML, MORPHINE SULFATE INJ (*CRX) 2 MG, ROPivacaine HCL 1% 2... INFILTRATE (08:21)
[2025-08-31] MEDS: GENTAMICIN BONE CEMENT REFOBACIN 1 EACH TOPICAL (10:20)
[2025-08-31] MEDS: TRANEXAMIC ACID 1,000 MG/10 ML AMPUL 1000 MG IV PUSH (10:45)
[2025-08-31] MEDS: KETOROLAC 15 MG/ML VIAL (*BKC) IV PUSH ×3 (11:15→23:27)
--- NOTE | 2025-08-31 12:02 | W.PM.PROC2 ---
Procedure Note - Detailed Date of Procedure 08/31/25 Pre-op Diagnosis OA right knee, obesity BMI 37 Post-op Diagnosis Same Procedure Performed Right total knee replacement Surgeon Isael Alvares MD [employer] Anesthesia General Description of Procedure Patient was brought to the operating room and general anesthesia was administered. He had a fixed flexion varus contracture flexion contracture about 10? under anesthesia. He received 2 g of Ancef weight based vancomycin 1 g of TXA preoperatively. Due to his obesity with BMI of 37, this added approximately 45 minutes to the procedure due to exposure difficulty compounded by his stiffness and relatively low patella. After prep and drape in the usual fashion limb was exsanguinated tourniquet elevated to 300 mmHg. A 7 in longitudinal incision was made and a standard parapatellar arthrotomy utilized. Partial excision of infrapatellar fat pad performed. Suprapatellar fat pad excised quadriceps synovectomy carried out. The patella had some inferior osteophyte which was trimmed and otherwise had normal articular cartilage without it was appropriate for non resurfacing. Minimal lateral facetectomy was performed. There is no remnant of the anterior cruciate ligament. There was eburnation medial tibial plateau with some bone wear posteriorly. Eburnation of posterior distal medial femoral condyle noted. A guide rick was inserted on femoral canal after aspiration of canal contents and using the 5 degree valgus cutting bushing, 9 mm of bone removed the distal femur. Next the tibial plateau was cut. We tried to make this him cut off the medial tibial plateau. I set the guide at about 2? of varus because of his marked varus so his tibia. This cut was made. Thickness of the lateral wafer was 8 mm. This did not quite reach the bottom of the defect on the posteromedial tibial plateau. The PCL was released from the posterior femur. Meniscus remnants were excised Flexion gap was too tight to except 8 mm spacer block medially. Therefore an additional 2 mm of bone was removed. Same alignment. With this the knee accepted the 8 mm spacer at 90? medially but it was quite tight. The 16 spacer block was accepted laterally 90?. We applied the distal femoral sizing guide set at 5? of external rotation. This matched [place] line. Size 65 vanguard cutting block was applied and AP and chamfer cuts were made. The 65 fit line to line medial to lateral. We trialed with the 10 CR poly and found that the knee except that at 90? but it was tight medially and laterally we had play. We lacked a few degrees of extension and found laxity laterally and no play medially. The tibial plateau was sized to a 71 placed at proper rotation which fit line to line posterolateral to anteromedial. This was punched. With the alignment rick we saw that this and up being and neutral alignment 0? in the coronal plane. We then removed the large medial osteophyte and posterior medial osteophyte. Capsule was the released only enough to reach the inferior margin of the osteophyte. With this done we trialed with the 11 and this gave excellent balance at 90? with 1.5 mm opening laterally 2 mm medially. With the arthrotomy towel clipped there was about 2 or 3 mm of anterior posterior drawer at 90?. In extension however we still lacked about 3 or 4? with no play valgus stress medially and about 3 or 4 mm of play laterally. At this point we removed the very large posterior femoral osteophytes proximal to the medial posterior femoral trial and a posterior capsular release was performed centrally from distal posterior femur. The distal femoral cutting block was applied and An additional 1 mm bone was removed from the medial femoral condyle and this was transition to the lateral femoral condyle creating a distal femoral cut alignment at 4? of valgus confirmed with the 4 degree wing attached the IM rick. Chamfer cuts revisited and this time on read trialing with a 10 mm insert the knee came out to full extension with 1 mm medial opening and 3 mm lateral opening. Negative bounce. With the arthrotomy towel clipped there still was a negative bounce with full extension achieved. Patellar tracking was central throughout range of motion. Lug holes for the femur were drilled. The tourniquet had been let down earlier at 90 minutes and was elevated at this time after exsanguination of limb. A step drill was used to make multiple drill holes in the tibial plateau and distal femur. Bone quality was excellent throughout. The bony surfaces were thoroughly irrigated and dried. Using 2 batches of methylmethacrylate 1 with gentamicin powder, cement was immediately applied to the size 71 vanguard tibial tray and the size 65 right CR femoral component. Cement was applied the tibial plateau and pressurized tibial component fully seated cement applied the femur the femoral component fully seated the knee brought to extension with a 12 mm 5 and 1 insert for cement pressurization. Tourniquet was released total tourniquet time approximately 110 minutes. After cement hardening excess cement was sought for removed hemostasis was achieved. We trialed with 11 insert and had the same stability findings and range of motion as above. [place] flexion was to 120? and passive flexion to 130. Central patellar tracking throughout range of motion. We chose the 11 insert which was placed and locked range of motion stability patellar tracking reconfirmed. Local anesthetic cocktail was injected in the periarticular soft tissues. Arthrotomy was closed with 2. Vicryl is a 1. Unidirectional barbed Stratafix suture. Skin was closed with 2 subcutaneous Vicryl 3-0 subcuticular Monocryl and glue medial superior cc. Two additional g of Ancef and 1 g of TXA given time wound closure. There were no complications. He was transferred to postop recovery room in stable condition. [facility] [place] - Charge Forward: Surgery Billing (Right total knee replacement)
[2025-08-31] MEDS: fentaNYL CITRATE INJ (*CRX) 100 MCG/2 ML VIAL 25 MCG IV PUSH ×4 (12:17→12:26)
--- NOTE | 2025-08-31 13:05 | ADMGEN ---
This patient, Marques Springer, was admitted to 3 [facility] Surg Room 301-01. Patient/family oriented to hospital policies and general routines including ID bracelet, bed and alarms, visiting hours, pain management, procedures, bathroom and other care routines, personal items, smoking policy, room service/diet, and visiting hours. Information on how to activate the Rapid Response Team has been discussed. Patient/Family are encouraged to report perceived risks to care and to ask questions if they do not understand what they are told or what they should do.
[2025-08-31] MEDS: ACETAMINOPHEN 325 MG TABLET 650 MG PO ×3 (13:25→20:36)
[2025-08-31] MEDS: oxyCODONE HCL (*CRX) 5 MG TAB IR PO ×3 (13:25→20:36)
--- NOTE | 2025-08-31 16:57 | PM.IMCN ---
Assessment and Plan Assessment and plan (1) Primary osteoarthritis of right knee: Code(s): M17.11 - Unilateral primary osteoarthritis, right knee Status: Acute Assessment and Plan: - ambulate with assistance and up to chair - use IS - neurovasc checks - see order for intervals - SCDs, Eliquis (starting on 09/01) - analgesics and antiemetics p.r.n. - monitor labs in AM - CBC and BMP - bowel regimen: docusate/senna, polyethylene glycol - maintenance fluids: NS 125 mL/hr x8 hrs - PT/OT (2) Prediabetes: Code(s): R73.03 - Prediabetes Status: Chronic Assessment and Plan: - A1c 5.8% on 08/16/2025 (3) Essential (primary) hypertension: Code(s): I10 - Essential (primary) hypertension Status: Chronic Assessment and Plan: - chronic, currently 132/74, stable - continue home medications: Losartan-hydrochlorothiazide - monitor (4) LOPEZ (obstructive sleep apnea): Code(s): G47.33 - Obstructive sleep apnea (adult) (pediatric) Status: Chronic Assessment and Plan: - continue home CPAP Plan Diet: Regular GI Prophylaxis: Pantoprazole p.o. DVT Prophylaxis: SCDs, Eliquis IV fluids: NS x8 hours Lines/Tubes: Peripheral IV Code Status: Full code HPI Date of Consult Consult date: 08/31/25 Requesting Physician: Isael Alvares MD Primary Care Provider: Meredith Rasheed MD Consult Narrative Reason for consult: Medical Management Narrative: 69 y/o M with PMH of DVT, prediabetes, prostate cancer, LOPEZ, BPH resolved with total prostatectomy, hypertension, and GERD presents here for a right total knee arthroplasty. He has a history of ibaa-or-ipyl medial compartment osteoarthritis of the right knee. He has previously taken naproxen and underwent cortisone injections for this knee. These interventions have not provided satisfactory pain relief. Given these factors he elected to proceed with surgical management. He underwent a total right knee arthroplasty on 08/31. Postoperatively he is reporting no significant pain, nausea, or vomiting. Overall feeling very well. Preop VS: 98? F, HR 77, R 18, 125/79, and 97% on RA. Preop workup: No leukocytosis, hemoglobin 13.9, no significant electrolyte derangements, creatinine 0.90 and GFR >60, A1c 5.8%. Review of Systems Review of Systems: All systems reviewed & are unremarkable except as noted in HPI and below PMFSH Past Medical History Medical History History of deep venous thrombosis (DVT) of distal vein of left lower extremity (~2012) Prediabetes History of prostate cancer Obesity Leucopenia History of colon polyps Osteoarthritis LOPEZ (obstructive sleep apnea) Insomnia History of colon polyps Environmental allergies Erectile dysfunction BPH NOS w/o ur obs/LUTS resolved status post total prostatectomy secondary to prostate cancer in July 2019. Prostate cancer Chronic neck and back pain Essential (primary) hypertension GERD without esophagitis Degenerative arthritis of knee, bilateral Cancer Surgical History Surgical History History of total left knee replacement (~01/2025) H/O radiofrequency ablation (RFA) of nerve of lumbar spine (~09/22/23) History of carpal tunnel surgery of left wrist (~2008) History of arthroscopy of both knees (~11/2012) 11/2012 - bilateral meniscus repair History of prostatectomy (~07/2019) 07/2019 Hx of decompressive lumbar laminectomy (~03/2013) S/P cervical spinal fusion (~04/2016) Family History Family History Mother Diabetes mellitus Hypertension Cerebrovascular accident Father Family history of tuberculosis, Onset Age: 74 Cerebrovascular accident, Onset Age: 74 Patient's father is Heart disease Family history of alcoholism Sibling Patient's sister is in good health Social History Social History Smoking status: Never smoker Second hand tobacco smoke exposure: No Alcohol intake: never Alcohol use details: occasionally Substance use: never Substance use type: does not use Lack of Transportation: No Lack of Food: Never True Current Housing: I Have Housing Concerned About Future Housing: No Difficulty Paying Gas/Electric Bills: No Difficulty Paying for Meds: No Currently Unemployed: No Education: Trade/Vocational Certificate Difficulty w/ Childcare or Family Care: No Living arrangements: with family Occupation/Education: retired 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 Gender identity (if verbalized by the patient): Male Spiritual care concerns: No Meds Home Medications and Allergies Home Medications ?Medication ?Instructions ?Recorded ?Confirmed ?Type [id number]-kj-wqaou 300 mcg-K 60 1 tablet PO DAILY 11/10/19 08/16/25 History mcg-lycop 600 mcg-lutein 300 mcg tablet (Centrum Silver Men) tadalafil 20 mg tablet (Cialis) 20 mg PO DAILY PRN Sexual Activity 06/04/21 08/16/25 History cholecalciferol (vitamin D3) 50 50 mcg PO DAILY #90 tabs 10/05/24 08/16/25 Rx mcg (2,000 unit) tablet zolpidem 10 mg tablet 10 mg PO QHS PRN insomnia #90 tabs 03/15/25 08/16/25 Rx cetirizine 10 mg tablet 10 mg PO DAILY PRN ALLERGIES 04/05/25 08/16/25 History docusate sodium 100 mg capsule 100 mg PO DAILY 04/05/25 08/16/25 History (Dulcolax Stool Softener (docusate)) Naproxin 500 mg PO PRN 04/26/25 08/16/25 History cyclobenzaprine 5 mg tablet 5 mg PO BID PRN muscle spasm #60 06/19/25 08/16/25 Rx tabs omeprazole 20 mg capsule,delayed 20 mg PO DAILY #90 caps 06/30/25 08/16/25 Rx release losartan 50 mg-hydrochlorothiazide 1 tablet PO DAILY #90 tabs 07/10/25 08/16/25 Rx 12.5 mg tablet acetaminophen 500 mg tablet 1,000 mg PO PRN PRN pain 08/16/25 08/16/25 History (Acetaminophen Extra Strength) Allergies Allergy/AdvReac Type Severity Reaction Status Date / Time No Known Allergies Allergy Verified 08/31/25 13:06 Vital Signs Vital Signs - 24 hr 08/31/25 07:00 08/31/25 11:57 08/31/25 12:10 Temperature 98.8 F 97.1 F L Pulse Rate 78 86 86 Respiratory Rate 16 14 14 Blood Pressure 140/79 156/94 H 146/82 H Pulse Oximetry 95 100 99 Oxygen Delivery Room Air Simple Face Mask Room Air Oxygen Flow Rate 6 08/31/25 12:25 08/31/25 12:40 08/31/25 12:50 Temperature 97.8 F 96.9 F L Pulse Rate 85 91 90 Respiratory Rate 14 16 16 Blood Pressure 155/87 H 140/88 145/96 H Pulse Oximetry 99 98 100 Oxygen Delivery Room Air Room Air Oxygen Flow Rate 08/31/25 13:15 08/31/25 13:35 08/31/25 14:13 Temperature 96.3 F L Pulse Rate 90 Respiratory Rate 16 Blood Pressure 147/85 H Pulse Oximetry 100 Oxygen Delivery Room Air Room Air Oxygen Flow Rate 08/31/25 14:35 08/31/25 15:17 Temperature 98.5 F Pulse Rate 107 H Respiratory Rate 16 Blood Pressure 132/74 Pulse Oximetry 95 Oxygen Delivery Room Air Oxygen Flow Rate Exam Const: General: comfortable and no acute distress Other: , male, nontoxic appearance HENMT: Face/Nose/Sinus: Normal nares present Mouth: Yes moist mucous membranes Eyes: General: appearance normal, both eyes and all related structures Sclera: sclerae normal Pupils: Equal, round and reactive pupils present EOM: EOMs intact bilaterally Resp: Effort & Inspection: normal respiratory effort Auscultation: clear to auscultation bilaterally Cardio: Rate: regular rate Rhythm: regular rhythm Other: S1-S2 present without murmur, rub, ectopy GI: Other: Abdomen soft, nondistended, nontender. Normoactive bowel sounds in all quadrants. Skin: General skin exam: normal color and no rashes or lesions noted Other: Postoperative incision to right knee, dressing CDI. Minimal edema. Minimal crepitus. Neuro: Speech: normal speech Motor exam (neuro): 5/5 motor strength present throughout Sensory Exam: normal sensation Other: A&O x4 Extrem: General: normal exam except as noted Psych: Mental Status: mental status grossly normal Affect: normal affect Other: Good insight and judgment, pleasant Quality VTE Prophylaxis VTE prophylaxis: mechanical ordered and pharmacologic ordered Hospitalist MIPS Advance Care Plan I have confirmed that the patient's Advanced Care Plan is present, code status is documented, or surrogate decision maker is listed in patient medical record.: Yes Medication Reconciliation I have utilized all available resources to obtain, update and review the patients current medications (includes all prescriptions, OTC, herbals, cannabis, and nutritional supplements).: Yes
[2025-08-31] MEDS: SENNA/DOCUSATE SODIUM TABLET 2 TAB PO (17:11)
[2025-08-31] MEDS: VANCOMYCIN HCL 1,000 MG in SODIUM CHLORIDE 0.9% IV 250 ML 250 MG IVPB (19:33)
[2025-09-01] MEDS: ACETAMINOPHEN 325 MG TABLET 650 MG PO ×3 (01:37→08:58)
[2025-09-01] MEDS: oxyCODONE HCL (*CRX) 5 MG TAB IR PO ×3 (01:37→08:58)
[2025-09-01 02:35] VITALS: BP 110/65; PULSE 89; RESP 14; TEMP 36.5; O2SAT 100
[2025-09-01] MEDS: VANCOMYCIN HCL 1,000 MG in SODIUM CHLORIDE 0.9% IV 250 ML 250 MG IVPB (06:06)
[2025-09-01 06:12] LABS: Hematocrit 34.9 % (42.0-52.0); Hemoglobin 11.2 g/dL (14.0-18.0); Immature Granulocyte Percent A 0.4 % (0-0.5); Lymphocytes Absolute Auto 0.69 K/mm3 (0.9-3.2); Mean Corpuscular HGB Conc 32.1 g/dl (32-36); Mean Corpuscular Hemoglobin 28.4 pg (26-34); Mean Corpuscular Volume 88.6 fl (80-100); Nucleated Red Blood Cells Absolute Auto 0.000 K/mm3 (0.0-0.012); Nucleated Red Blood Cells Perc 0.0 % (0.0-0.2); Platelet Count Result 273 k/mm3 (150-375); Red Blood Count 3.94 M/mm3 (4.6-6.20); White Blood Count 9.8 K/mm3 (4.5-10.0)
--- NOTE | 2025-09-01 07:24 | P.PNIM_ITS ---
Progress Note: A&P Assessment and Plan (1) Primary osteoarthritis of right knee: Code(s): M17.11 - Unilateral primary osteoarthritis, right knee Status: Acute Assessment and Plan: Underwent a right total knee replacement on 08/[address] Alvares - ambulate with assistance and up to chair - use IS - neurovasc checks - see order for intervals - SCDs, Eliquis - analgesics and antiemetics p.r.n. - monitor labs in AM - CBC and BMP - bowel regimen: docusate/senna, polyethylene glycol - PT/OT: recommending outpatient therapy (2) Prediabetes: Code(s): R73.03 - Prediabetes Status: Chronic Assessment and Plan: - A1c 5.8% on 08/16/2025 (3) Essential (primary) hypertension: Code(s): I10 - Essential (primary) hypertension Status: Chronic Assessment and Plan: - continue home medications: Losartan-hydrochlorothiazide - blood pressures reviewed and stable, continue to monitor (4) LOPEZ (obstructive sleep apnea): Code(s): G47.33 - Obstructive sleep apnea (adult) (pediatric) Status: Chronic Assessment and Plan: - continue home CPAP Plan Diet: Regular GI Prophylaxis: Pantoprazole p.o. DVT Prophylaxis: SCDs, Eliquis Lines/Tubes: Peripheral IV Code Status: Full code Subjective Date/time seen: 09/01/25 07:24 Interval history: 69 year old male with PMH of DVT, prediabetes, prostate cancer, LOPEZ, BPH resolved with total prostatectomy, hypertension, and GERD presents to the hospital for a right total knee arthroplasty. Review of Systems Review of Systems: All systems reviewed & are unremarkable except as noted in HPI and below Exam Narrative: AF General: well nourished, well-developed female in no acute respiratory distress who is nontoxic appearing, lying semi recumbent in bed. HEENT: Normocephalic. Atraumatic. Pupils equal round reactive to light. Extraocular movement intact. Sclera clear and anicteric. Nares patent. No oral lesions. Moist mucous membranes. Tongue is midline. Palate melinda symmetrically. No facial asymmetry. Neck: Neck was supple. No dominant adenopathy, thyromegaly or masses. 2+ carotid upstrokes without bruits. Chest: Lungs are clear to auscultation bilaterlly. No wheezes or crackles. CV: Heart was regular rate and rhythm. S1-S2. No murmurs, gallops, or rubs. Abd: Abdomen was soft. Nontender. Nondistended. Postive bowel sounds. No organomegaly or masses. Ext: No clubbing, cyanosis, or edema. 2+ DP pulses bilaterally. Neuro: Patient is alert and oriented x4. Strenth is 5/5 in both upper and lower extremities. Cranial nerves 2-12 are intact. Speech is clear. Psych: Normal nood and affect. Patient is pleasant and cooperative. Skin: Warm and dry. No rashes noted. Objective Data Vital Signs Vital Signs: Vital Signs - 24 hr 08/31/25 11:57 08/31/25 12:10 08/31/25 12:25 Temperature 97.1 F L Pulse Rate 86 86 85 Respiratory Rate 14 14 14 Blood Pressure 156/94 H 146/82 H 155/87 H Pulse Oximetry 100 99 99 Oxygen Delivery Simple Face Mask Room Air Room Air Oxygen Flow Rate 6 08/31/25 12:40 08/31/25 12:50 08/31/25 13:15 Temperature 97.8 F 96.9 F L Pulse Rate 91 90 Respiratory Rate 16 16 Blood Pressure 140/88 145/96 H Pulse Oximetry 98 100 Oxygen Delivery Room Air Room Air Oxygen Flow Rate 08/31/25 13:35 08/31/25 14:13 08/31/25 14:35 Temperature 96.3 F L 98.5 F Pulse Rate 90 107 H Respiratory Rate 16 16 Blood Pressure 147/85 H 132/74 Pulse Oximetry 100 95 Oxygen Delivery Room Air Oxygen Flow Rate 08/31/25 15:17 08/31/25 20:14 09/01/25 02:35 Temperature 98.5 F 97.7 F Pulse Rate 101 H 89 Respiratory Rate 14 14 Blood Pressure 135/71 110/65 Pulse Oximetry 97 100 Oxygen Delivery Room Air Oxygen Flow Rate Intake/Output Intake/Output: Intake & Output 08/29/25 08/30/25 08/31/25 09/01/25 23:59 23:59 23:59 23:59 Intake Total 930 Balance 930 Meds/Results Medications: Active Medications Generic Name Dose Route Start Last Admin Trade Name Freq PRN Reason Stop Dose Admin Acetaminophen 650 mg 08/31/25 13:00 09/01/25 05:23 Acetaminophen 325 Mg Tablet PO 650 mg Q4HR MARLYN Administration Apixaban 2.5 mg 09/01/25 09:00 Apixaban 2.5 Mg Tablet PO Q12HR [facility] Celecoxib 100 mg 09/01/25 08:00 Celecoxib 100 Mg Capsule PO DAILY@0800 [facility] Cyclobenzaprine HCl 5 mg 08/31/25 12:50 Cyclobenzaprine Hcl 5 Mg Tablet PO BID PRN Muscle Spasm Doxycycline Hyclate 100 mg 09/01/25 09:00 Doxycycline Hyclate 100 Mg Tablet PO 09/13/25 08:59 Q12HR [facility] Hydrochlorothiazide 12.5 mg 09/01/25 09:00 Hydrochlorothiazide 12.5 Mg Capsule PO DAILY [facility] Vancomycin HCl 1,000 mg/ 250 mls @ 250 mls/hr 08/31/25 19:00 09/01/25 06:06 Sodium Chloride IVPB 09/01/25 07:59 250 mls/hr Q12H MARLYN Administration Cefazolin Sodium 2 gm/ Sodium 50 mls @ 100 mls/hr 08/31/25 16:00 08/31/25 23:28 Chloride IVPB 09/01/25 08:29 100 mls/hr Q8H MARLYN Administration Loratadine 10 mg 08/31/25 12:59 Loratadine 10 Mg Tablet PO DAILY PRN ALLERGIES Losartan Potassium 50 mg 09/01/25 09:00 Losartan Potassium 50 Mg Tablet PO DAILY [facility] Miscellaneous Information 0 each 08/31/25 00:01 Cialis Nonform Ok To Hold While Here? XX 09/30/25 00:00 CLARIFY [facility] Morphine Sulfate 2 mg 08/31/25 12:58 Morphine Sulfate (*Crx) 4 Mg/Ml Inj IV PUSH Q1H PRN Pain Rated 7-10 IF NPO Multivitamins/Minerals 1 tablet 09/01/25 12:00 Opti-Gen Tab PO DAILY@1200 [facility] Naloxone HCl 0.1 mg 08/31/25 12:50 Naloxone Hcl 0.4 Mg/Ml Vial IV PUSH Q2M PRN Opiate Reversal Non-Formulary Medication 20 mg 08/31/25 12:50 Tadalafil [Cialis] PO DAILY PRN Sexual Activity Ondansetron HCl 4 mg 08/31/25 12:50 Ondansetron Inj 4 Mg/2 Ml Vial IV PUSH Q4H PRN Nausea And Vomiting Oxycodone HCl 5 mg 08/31/25 13:00 09/01/25 05:23 Oxycodone Hcl (*Crx) 5 Mg Tab Ir PO 5 mg Q4HR MARLYN Administration Oxycodone HCl 5 mg 08/31/25 12:50 Oxycodone Hcl (*Crx) 5 Mg Tab Ir PO Q4H PRN Pain Rated 7-10 Pantoprazole Sodium 40 mg 09/01/25 09:00 Pantoprazole 40 Mg Tablet PO DAILY [facility] Polyethylene Glycol 17 gm 09/01/25 09:00 Polyethylene Glycol 3350 17 Gm Powd.Pack PO QAM MARLYN Senna/Docusate Sodium 2 tab 08/31/25 17:00 08/31/25 17:11 Senna/Docusate Sodium Tablet PO 2 tab BID MARLYN Administration Vitamin D 50 mcg 09/01/25 09:00 Cholecalciferol (Vitamin D3) 25 Mcg (1,000 Units) Tablet PO DAILY [facility] Radiology Results: ITS Impressions Knee X-Ray 08/31/25 12:18 Impression: No acute fracture or malalignment. Labs Labs: Laboratory Results - last 24 hr 08/31/25 09/01/25 06:50 05:22 WBC 9.8 RBC 3.94 L Hgb 11.2 L Hct 34.9 L MCV 88.6 MCH 28.4 MCHC 32.1 RDW 14.2 Plt Count 273 MPV 9.3 Immature Gran % (Auto) 0.4 Neut % (Auto) 84.4 H Lymph % (Auto) 7.0 L [place] % (Auto) 7.9 Eos % (Auto) 0.1 Baso % (Auto) 0.2 Lymph # (Auto) 0.69 L [place] # (Auto) 0.8 H Eos # (Auto) 0.0 Baso # (Auto) 0.0 Abs Immat Gran (auto) 0.04 H Absolute Neuts (auto) 8.3 H Absolute Nucleated RBC 0.000 Nucleated RBC % 0.0 Blood Type A Positive Antibody Screen Negative Quality VTE Prophylaxis VTE prophylaxis: mechanical ordered and pharmacologic ordered
--- NOTE | 2025-09-01 07:31 | PM.PNORT ---
Progress Note: A&P Assessment and Plan (1) Status post total right knee replacement: Code(s): Z96.651 - Presence of right artificial knee joint Status: Acute Assessment and Plan: Patient is postop day 1 after right total knee replacement. He seems to doing very well. He was up walking around last night. He did well with his therapy last night. There is no blood visible in the dressing he has only mild swelling about the knee. His labs show mild acute blood loss anemia with hemoglobin of 11.2. BMP is still pending. His pain remains well controlled. It is mostly soreness in the mid proximal quad area. He feels safe to go home today. Focusing on flexion and extension and elevation was reviewed. Subjective Subjective Date/Time Seen: 09/01/25 07:31 Objective Data Vital Signs Vital Signs: Vital Signs - 24 hr 08/31/25 11:57 08/31/25 12:10 08/31/25 12:25 Temperature 36.2 C L Pulse Rate 86 86 85 Respiratory Rate 14 14 14 Blood Pressure 156/94 H 146/82 H 155/87 H Pulse Oximetry 100 99 99 Oxygen Delivery Simple Face Mask Room Air Room Air Oxygen Flow Rate 6 08/31/25 12:40 08/31/25 12:50 08/31/25 13:15 Temperature 36.6 C 36.1 C L Pulse Rate 91 90 Respiratory Rate 16 16 Blood Pressure 140/88 145/96 H Pulse Oximetry 98 100 Oxygen Delivery Room Air Room Air Oxygen Flow Rate 08/31/25 13:35 08/31/25 14:13 08/31/25 14:35 Temperature 35.7 C L 36.9 C Pulse Rate 90 107 H Respiratory Rate 16 16 Blood Pressure 147/85 H 132/74 Pulse Oximetry 100 95 Oxygen Delivery Room Air Oxygen Flow Rate 08/31/25 15:17 08/31/25 20:14 09/01/25 02:35 Temperature 36.9 C 36.5 C Pulse Rate 101 H 89 Respiratory Rate 14 14 Blood Pressure 135/71 110/65 Pulse Oximetry 97 100 Oxygen Delivery Room Air Oxygen Flow Rate Intake/Output Intake/Output: Intake & Output 08/29/25 08/30/25 08/31/25 09/01/25 23:59 23:59 23:59 23:59 Intake Total 930 Balance 930 Meds/Results Medications: Active Medications Generic Name Dose Route Start Last Admin Trade Name Freq PRN Reason Stop Dose Admin Acetaminophen 650 mg 08/31/25 13:00 09/01/25 05:23 Acetaminophen 325 Mg Tablet PO 650 mg Q4HR MARLYN Administration Apixaban 2.5 mg 09/01/25 09:00 Apixaban 2.5 Mg Tablet PO Q12HR [facility] Celecoxib 100 mg 09/01/25 08:00 Celecoxib 100 Mg Capsule PO DAILY@0800 [facility] Cyclobenzaprine HCl 5 mg 08/31/25 12:50 Cyclobenzaprine Hcl 5 Mg Tablet PO BID PRN Muscle Spasm Doxycycline Hyclate 100 mg 09/01/25 09:00 Doxycycline Hyclate 100 Mg Tablet PO 09/13/25 08:59 Q12HR [facility] Hydrochlorothiazide 12.5 mg 09/01/25 09:00 Hydrochlorothiazide 12.5 Mg Capsule PO DAILY [facility] Vancomycin HCl 1,000 mg/ 250 mls @ 250 mls/hr 08/31/25 19:00 09/01/25 06:06 Sodium Chloride IVPB 09/01/25 07:59 250 mls/hr Q12H MARLYN Administration Cefazolin Sodium 2 gm/ Sodium 50 mls @ 100 mls/hr 08/31/25 16:00 08/31/25 23:28 Chloride IVPB 09/01/25 08:29 100 mls/hr Q8H MARLYN Administration Loratadine 10 mg 08/31/25 12:59 Loratadine 10 Mg Tablet PO DAILY PRN ALLERGIES Losartan Potassium 50 mg 09/01/25 09:00 Losartan Potassium 50 Mg Tablet PO DAILY [facility] Miscellaneous Information 0 each 08/31/25 00:01 Cialis Nonform Ok To Hold While Here? XX 09/30/25 00:00 CLARIFY [facility] Morphine Sulfate 2 mg 08/31/25 12:58 Morphine Sulfate (*Crx) 4 Mg/Ml Inj IV PUSH Q1H PRN Pain Rated 7-10 IF NPO Multivitamins/Minerals 1 tablet 09/01/25 12:00 Opti-Gen Tab PO DAILY@1200 [facility] Naloxone HCl 0.1 mg 08/31/25 12:50 Naloxone Hcl 0.4 Mg/Ml Vial IV PUSH Q2M PRN Opiate Reversal Non-Formulary Medication 20 mg 08/31/25 12:50 Tadalafil [Cialis] PO DAILY PRN Sexual Activity Ondansetron HCl 4 mg 08/31/25 12:50 Ondansetron Inj 4 Mg/2 Ml Vial IV PUSH Q4H PRN Nausea And Vomiting Oxycodone HCl 5 mg 08/31/25 13:00 09/01/25 05:23 Oxycodone Hcl (*Crx) 5 Mg Tab Ir PO 5 mg Q4HR MARLYN Administration Oxycodone HCl 5 mg 08/31/25 12:50 Oxycodone Hcl (*Crx) 5 Mg Tab Ir PO Q4H PRN Pain Rated 7-10 Pantoprazole Sodium 40 mg 09/01/25 09:00 Pantoprazole 40 Mg Tablet PO DAILY [facility] Polyethylene Glycol 17 gm 09/01/25 09:00 Polyethylene Glycol 3350 17 Gm Powd.Pack PO QAM [facility] Senna/Docusate Sodium 2 tab 08/31/25 17:00 08/31/25 17:11 Senna/Docusate Sodium Tablet PO 2 tab BID MARLYN Administration Vitamin D 50 mcg 09/01/25 09:00 Cholecalciferol (Vitamin D3) 25 Mcg (1,000 Units) Tablet PO DAILY [facility] Radiology Results: ITS Impressions Knee X-Ray 08/31/25 12:18 Impression: No acute fracture or malalignment. Labs Labs: Laboratory Results - last 24 hr 08/31/25 09/01/25 06:50 05:22 WBC 9.8 RBC 3.94 L Hgb 11.2 L Hct 34.9 L MCV 88.6 MCH 28.4 MCHC 32.1 RDW 14.2 Plt Count 273 MPV 9.3 Immature Gran % (Auto) 0.4 Neut % (Auto) 84.4 H Lymph % (Auto) 7.0 L [place] % (Auto) 7.9 Eos % (Auto) 0.1 Baso % (Auto) 0.2 Lymph # (Auto) 0.69 L [place] # (Auto) 0.8 H Eos # (Auto) 0.0 Baso # (Auto) 0.0 Abs Immat Gran (auto) 0.04 H Absolute Neuts (auto) 8.3 H Absolute Nucleated RBC 0.000 Nucleated RBC % 0.0 Blood Type A Positive Antibody Screen Negative
[2025-09-01 07:47] LABS: Anion Gap 5 mmol/L (4-12); Blood Urea Nitrogen 16 mg/dL (9-20); Calcium 8.3 mg/dL (8.4-10.2); Carbon Dioxide 30 mmol/L (22-30); Chloride 99 mmol/L (98-107); Estimated CRCL calculation 71 ml/min; Estimated Glomerular Filt Rate > 60; Glucose 133 mg/dL (65-110); Potassium 3.9 mmol/L (3.4-5.0); Sodium 134 mmol/L (137-145)
[2025-09-01] MEDS: SENNA/DOCUSATE SODIUM TABLET 2 TAB PO (08:56)
[2025-09-01] MEDS: CHOLECALCIFEROL (VITAMIN D3) 25 MCG (1,000 UNITS) TABLET 50 MCG PO (08:56)
[2025-09-01] MEDS: PANTOPRAZOLE 40 MG TABLET PO (08:57)
[2025-09-01] MEDS: DOXYCYCLINE HYCLATE 100 MG TABLET PO (08:57)
[2025-09-01] MEDS: APIXABAN 2.5 MG TABLET PO (08:58)
[2025-09-01] MEDS: CELECOXIB 100 MG CAPSULE PO (08:58)
[2025-09-01] MEDS: LOSARTAN POTASSIUM 50 MG TABLET PO (08:58)
[2025-09-01] MEDS: ceFAZolin 2 GM in SODIUM CHLORIDE 0.9% IV 50 ML 100 ML IVPB (08:59)
[2025-09-01 10:20] VITALS: BP 109/61; PULSE 88; RESP 16; TEMP 36.3; O2SAT 97
== END 2025-09-01 10:40 | disposition home or self-care (01) ==
LOC: ANHSURGERY 05:56 → ANH3MEDSUR 12:52
PROVIDERS: PCP Family Medicine; Visit Provider Orthopaedic Surgery
PROC: (CPT 27447; principal; 2025-08-31 07:30)
DX: M17.11 Unilateral primary osteoarthritis, right knee (principal); M25.761 Osteophyte, right knee; I10 Essential (primary) hypertension; R73.03 Prediabetes; G47.33 Obstructive sleep apnea (adult) (pediatric); N52.9 Male erectile dysfunction, unspecified; N40.0 Benign prostatic hyperplasia without lower urinary tract symptoms; K21.9 Gastro-esophageal reflux disease without esophagitis; D72.819 Decreased white blood cell count, unspecified; G47.00 Insomnia, unspecified; G89.29 Other chronic pain; M54.2 Cervicalgia; M54.9 Dorsalgia, unspecified; E66.9 Obesity, unspecified; Z68.36 Body mass index [BMI] 36.0-36.9, adult; Z79.1 Long term (current) use of non-steroidal anti-inflammatories (NSAID); Z99.89 Dependence on other enabling machines and devices; Z98.890 Other specified postprocedural states; Z96.652 Presence of left artificial knee joint; Z98.1 Arthrodesis status; Z86.0100 Personal history of colon polyps, unspecified; Z85.46 Personal history of malignant neoplasm of prostate; Z86.718 Personal history of other venous thrombosis and embolism; Z86.79 Personal history of other diseases of the circulatory system; Z82.49 Family history of ischemic heart disease and other diseases of the circulatory system
CPT/HCPCS: 27447; 36415; 73560; 80048; 85025; 86850; 86900; 86901; 97110; 97161; 97166; 97530; 97535; J0690; A9270; C1713; C1776; J0166; J1100; J1885; J2003; J2250; J2270; J2390; J2405; J2704; J2795; J3010; J3290; J3373; J7050; J7120